=== PATIENT | female | born 1970 | race Caucasian/White ===

== ENCOUNTER 2018-11-03 12:38 | Inpatient (IN) ==
[2018-11-03] MEDS ORDERED: ADENOCARD INJ 6 MG ONE (13:29)
[2018-11-03] MEDS ORDERED: NS 1000 ML 1,000 ML ONE (13:35)
[2018-11-03] MEDS ORDERED: CARDIZEM INJ 50 MG VIAL IVP ONE ×4 (13:47→14:56)
[2018-11-03] MEDS ORDERED: CARDIZEM INJ 50 MG VIAL ONE ×3 (13:47→15:55)
[2018-11-03] MEDS ORDERED: NS 1000 ML 1,000 ML IV ONE ×3 (13:48→16:49)
--- NOTE | 2018-11-03 13:51 | DR.EXTPAIN ---
HPI - Time seen Time seen: 13:47 - PCP Primary Care Physician: JAKE GALEANO - Complaint/Symptoms Chief Complaint Doctor Comments: Patient is complaining of left lower abdominal and epigastric pain with nausea for the past 24 hours. States she thought she passed a kidney stone yesterday with lower abdominal pain and pain in her "ureter". she denies chest pain but is complaining of SOB, nausea vomiting but denies fever, chills. cold or cough. States she has not had a problem with rapid heart rate before. She smokes 1/2 pack cigarettes daily and drinks alcohol occasionally. Chief Complaint:: PATIENT STATED SHE THINKS SHE HAS A KIDNEY STONE CAUSE SHE HAS BEEN HURTING FOR 8 DAYS AND SHE STATED SHE HAD BEEN RETAINING FLUID. - Nurses notes reviewed Nurses Notes Review: Yes - Source History Provided: Patient - Mode of arrival Mode of Arrival: Ambulatory - Timing Onset of Chief Complaint: 10/27/18 - Context History of: None - Associated signs and symptoms Associated Signs and Symptoms: Pain, Shortness of Breath PMH - PMH Past Medical History: Yes Past Medical History: Diabetes, Hypertension Past Surgical History: Yes Surgical History: Hysterectomy - Family History History of Family Medical Conditions: No - Social History Does patient currently use any type of tobacco product: Yes Have you used tobacco products in the last 12 months: Yes Type of Tobacco Use: None How many years tobacco product used: 36 Does any household member use tobacco: Yes Alcohol Use: Occasionally Do you use any recreational Drugs:: No Lives With: Family Lives Where: Home - infectious screening In the last 2 months have you had wt loss of >10#?: NO Have you had fever, night sweats or hemotysis?: No Have you traveled outside the country in the last 6 months?: No Isolation: Standard ROS - Review of Systems Constitutional: No Symptoms Reported Eyes: No Symptoms Reported ENTM: No Symptoms Reported Respiratoy: No Symptoms Reported, Short of Breath Cardiovascular: No Symptoms Reported, Palpitations Gastrointestinal/Abdominal: No Symptoms Reported, Abdominal Pain, Nausea Genitourinary: No Symptoms Reported. negative: See HPI, Discharge, Dysuria, Frequency, Hematuria, Pain, Bleeding, Other Neurological: No Symptoms Reported. negative: See HPI, Anxiety, Depressed, Emotional Problems, Headache, Numbness, Paresthesia, Pre-existing Deficit, Seizure, Tingling, Tremors, Weakness, Dizziness, Problems Walking, Speech Problem, Other Musculoskeletal: No Symptoms Reported Integumentary: No Symptoms Reported Hematologic/Lymphatic: No Symptoms Reported. negative: See HPI, Anemia, Blood Clots, Easy Bleeding, Easy Bruising, Swollen Glands, Lymphadenopathy, Other Endocrine: No Symptoms Reported Psychiatric: No Symptoms Reported. negative: See HPI, Anxiety, Depression, Hallucinations, Excessive crying, Suicidal, Other PE - General Limitations: No Limitations General Appearance: Alert, In Distress (slight) - Head Head Exam: Normal Inspection, Atraumatic, Normocephalic - Eyes Eye exam: Normal Appearance, PERRL, EOMI. negative: Scleral Icterus, Conjunctival Injection, Nystagmus, Miosis, Mydrasis, Periorbital Swelling, Periorbital Tenderness, Other - ENT ENT Exam: Normal Exam, Normal Oropharynx, Normal External Ear Exam, Mucous Membranes Moist, TM's Normal Bilaterally - Neck Neck Exam: Normal Inspection, Full ROM, Trachea Midline. negative: Tenderness, Meningismus, Lymphadenopathy, Thyromegaly, Other - Chest Chest Inspection: Normal Inspection, Symmetric Chest Wall Rise - Respiratory Respiratory Exam: Normal Lung Sounds Bilat Respiratory Exam: Bilateral Clear to Auscultation - Cardiovascular Cardiovascular Exam: Regular Rate, Normal Rhythm, Tachycardia, Normal Heart Sounds - Abdominal Exam Abdominal Exam: Normal Inspection, Normal Bowel Sounds, Soft, Tenderness (left lower abdominal pain with suprapubic pain) Abdominal Tenderness: Suprapubic, Moderate - Extremities Extremities Exam: Normal Inspection, Full ROM, Normal Capillary Refill. negative: Tenderness, Edema, Joint Swelling, Calf Tenderness, Other - Upper Extremities Shoulder Exam: Normal Inspection, Full ROM Arm Exam: Normal Inspection, Full ROM. negative: Tenderness, Swelling, Abrasion, Laceration, Ecchymosis, Deformity, Crepitus, Erythema, Other Elbow Exam: Normal Inspection, Full ROM Forearm Exam: Normal Inspection, Full ROM. negative: Tenderness, Swelling, Abrasion, Laceration, Ecchymosis, Deformity, Crepitus, Erythema, Dislocation, Other Hand Exam: Normal Inspection, Full ROM Neuromotor Exam: Normal Exam Neurosensory Exam: Normal Exam Hand Tendon Exam: Flexor Digitorium Profundus (Location) (normal) Upper Ext. Vascular Exam: Capillary Refill (normal), Radial Pulse (normal) - Lower Extremities Hip/Pelvis Exam: Normal Inspection, Full ROM Upper Leg Exam: Normal Inspection, Full ROM Knee Exam: Normal Inspection, Full ROM Lower Leg Exam: Normal Inspection, Full ROM Ankle Exam: Normal Inspection, Full ROM Foot/Toe Exam: Normal Inspection, Full ROM Neurovascular/Tendon Exam: Normal Capillary Refill, Normal 2-point discrimination. negative: Pulse Deficit, Motor Deficit, Sensory Deficit, Tendon Deficit, Extremity Cold to Touch, Pallor, Normal Fine/Light Touch, Foot Drop, Peroneal Nerve Deficit, Other Gait Exam: Observed and Normal - Back Back Exam: Normal Inspection, Full ROM - Neurological Neurological Exam: Alert, Oriented X3, CN II-XII Intact, Reflexes Normal. negative: Normal Gait (gait not tested) - Psychiatric Psychiatric Exam: Normal Affect, Normal Mood - Skin Skin Exam: Warm, Dry, Intact, Normal Color Type of Lesion: negative: Rash, Abscess, Laceration, Foreign Body, Bite/Sting, Abrasion, Other Distribution: negative: Generalized, Involves Palms/Soles, Head, Face, Neck, Thorax, Chest, Back, Abdomen, Genitals, LUE, LLE, RUE, RLE, Other Description: negative: Size, Tenderness, Erythematous, Swelling, Macular, Papular, Vesicular, Blisters, Cofluent, Bullous, Petechial, Purpuric, Urticaria l, Crusting, Discharge, Fluctuant, Indurated, Other - Vital Signs Vitals: Temperature 98.9 F Pulse Rate [Apical] 103 Pulse Rate 159 Respiratory Rate 15 Blood Pressure [Right Arm] 122/58 Blood Pressure 110/76 O2 Sat by Pulse Oximetry 97 Course - Reevaluation 1st: Improved - Consultation Called: 17:55 Call Returned: 17:55 (Dr. Cisneros to admit) - Education/Counseling Education/Counseling: Family Educated On: Treatment, Diagnosis, Needs for Follow Up ROR - Labs Reviewed Laboratory Results Reviewed?: Yes (All labs and x-ray results reviewed and discussed with patient) Result Diagrams: 11/03/18 13:36 11/03/18 13:36 - XRAY XRAY Interpreted by: Radiologist (CT abdomen and pelvis: Mildto moderate volum ascites and anasarca wtih small right pleural effusion. Cardiomegaly. Colonic diverticulosis) - EKG Rate: 159 Rew: Normal Rhythm: ST Block: None Hypertrophy: None ST: Inf, Ischemia - Labs Reviewed Laboratory: WBC 15.1 X10^3/uL (3.6-10.0) H 11/03/18 13:36 RBC 4.03 X10^6/uL (3.5-5.4) 11/03/18 13:36 Hgb 11.4 g/dL (12.0-16.0) L 11/03/18 13:36 Hct 34.9 % (36.0-47.0) L 11/03/18 13:36 MCV 86.7 fL (80.0-100.0) 11/03/18 13:36 MCH 28.4 pg (27.0-34.0) 11/03/18 13:36 MCHC 32.7 g/dL (33.0-35.0) L 11/03/18 13:36 RDW 15.5 % (11.6-16.5) 11/03/18 13:36 Plt Count 344 X10^3/uL (150.0-450.0) 11/03/18 13:36 MPV 8.2 fL (7.4-11.0) 11/03/18 13:36 Neut % (Auto) 79.4 % (42.0-75.0) H 11/03/18 13:36 Lymph % (Auto) 14.9 % (21.0-51.0) L 11/03/18 13:36 [place] % (Auto) 4.3 % (0.0-13.0) 11/03/18 13:36 Eos % (Auto) 0.9 % (0.9-2.9) 11/03/18 13:36 Baso % (Auto) 0.5 % (0.2-1.0) 11/03/18 13:36 Neut # (Auto) 12.0 x10^3/uL (2.2-4.8) H 11/03/18 13:36 Lymph # (Auto) 2.2 X10^3/uL (1.3-2.9) 11/03/18 13:36 [place] # (Auto) 0.6 x10^3/uL (0.3-0.8) 11/03/18 13:36 Eos # (Auto) 0.1 x10^3/uL (0.0-0.2) 11/03/18 13:36 Baso # (Auto) 0.1 X10^3/uL (0.0-0.1) 11/03/18 13:36 Absolute Nucleated RBC 0.0 /100WBC 11/03/18 13:36 INR Target Range - 11/03/18 13:36 INR 1.14 (0.8-1.3) 11/03/18 13:36 APTT 30.7 SECONDS (22.9-36.5) 11/03/18 13:36 PTT Comment - 11/03/18 13:36 D-Dimer 271 ng/mL (0-400) 11/03/18 13:36 Sodium 136 mmol/L (136-145) 11/03/18 13:36 Corrected Sodium 138 mmol/L (136-145) 11/03/18 13:36 Potassium 3.4 mmol/L (3.5-5.1) L 11/03/18 13:36 Chloride 102 mmol/L (98-107) 11/03/18 13:36 Carbon Dioxide 26.0 mmol/L (21-32) 11/03/18 13:36 BUN 20 mg/dL (7-18) H 11/03/18 13:36 Creatinine 0.77 mg/dL (0.55-1.02) 11/03/18 13:36 Est GFR (MDRD) Af Amer > 60 (>60) 11/03/18 13:36 Est GFR (MDRD) Non-Af > 60 (>60) 11/03/18 13:36 Glucose 193 mg/dL (65-99) H 11/03/18 13:36 Calcium 9.0 mg/dL (8.5-10.1) 11/03/18 13:36 Corrected Calcium 9.6 mg/dL (8.5-10.1) 11/03/18 13:36 Magnesium 2.3 mg/dL (1.7-2.9) 11/03/18 13:36 Total Bilirubin 0.60 mg/dL (0.2-1.0) 11/03/18 13:36 AST 20 Units/L (15-37) 11/03/18 13:36 ALT 32 Units/L (12-78) 11/03/18 13:36 Alkaline Phosphatase 91 Units/L (46-116) 11/03/18 13:36 Creatine Kinase 127 Units/L (26-192) 11/03/18 13:36 CK-MB (CK-2) 2.9 ng/mL (0-4.0) 11/03/18 13:36 CK/CKMB % Calc 2.3 % (<4) 11/03/18 13:36 Troponin I 0.06 ng/mL (0-1.5) 11/03/18 13:36 Total Protein 6.4 g/dL (6.4-8.2) 11/03/18 13:36 Albumin 3.3 g/dL (3.4-5.0) L 11/03/18 13:36 Globulin 3.1 g/dL (2.5-4.5) 11/03/18 13:36 Albumin/Globulin Ratio 1.1 Ratio (1.1-2.1) 11/03/18 13:36 Amylase 26 Units/L (25-115) 11/03/18 13:36 Lipase 124 Units/L (73-393) 11/03/18 13:36 Free T4 1.40 ng/dL (0.76-1.46) 11/03/18 13:36 TSH 3rd Generation 1.165 uIU/mL (0.358-3.74) 11/03/18 13:36 Specimen Type Clean catch urine 11/03/18 13:42 Urine Color Yellow (YELLOW) 11/03/18 13:42 Urine Appearance Slightly hazy (CLEAR) 11/03/18 13:42 Urine pH 5.0 (5.0 - 8.0) 11/03/18 13:42 Ur Specific [place] 1.030 (1.000-1.030) 11/03/18 13:42 Urine Protein 2+ (NEGATIVE) 11/03/18 13:42 Urine Glucose (UA) Negative (NEGATIVE) 11/03/18 13:42 Urine Ketones 1+ (NEGATIVE) 11/03/18 13:42 Urine Occult Blood 1+ (NEGATIVE) 11/03/18 13:42 Urine Nitrite Negative (NEGATIVE) 11/03/18 13:42 Urine Bilirubin Negative (NEGATIVE) 11/03/18 13:42 Urine Urobilinogen 1+ (NORMAL) 11/03/18 13:42 Ur Leukocyte Esterase 1+ (NEGATIVE) 11/03/18 13:42 Urine RBC 0-2 /HPF (NONE SEEN) 11/03/18 13:42 Urine WBC 0-2 /HPF (NONE SEEN) 11/03/18 13:42 Ur Squamous Epith Cells Moderate /HPF (NEGATIVE) 11/03/18 13:42 Amorphous Sediment 1+ /HPF (NEGATIVE) 11/03/18 13:42 Urine Bacteria Negative /HPF (NEGATIVE) 11/03/18 13:42 Ur Culture Indicated? No/not indicated 11/03/18 13:42 Urine Opiates Screen Negative (NEG=<300) 11/03/18 13:42 Urine Methadone Screen Negative (NEG=<300) 11/03/18 13:42 Ur Barbiturates Screen Negative (NEG=<200) 11/03/18 13:42 Ur Phencyclidine Scrn Negative (NEG=<25) 11/03/18 13:42 Ur Amphetamines Screen Negative (NEG=<1000) 11/03/18 13:42 U Benzodiazepines Scrn Negative (NEG=<200) 11/03/18 13:42 Urine Cocaine Screen Negative (NEG=<300) 11/03/18 13:42 U Marijuana (THC) Screen Negative (NEG=<50) 11/03/18 13:42 - Diagnosis Discharge Problem: Atrial flutter with rapid ventricular response, Pleural effusion on right, Cardiac arrhythmia, Diverticulosis of colon, Hyperglycemia, Hypokalemia, Ascites Abdominal pain Qualifiers: Abdominal location: lower abdomen, unspecified Qualified Code(s): R10.30 - Lower abdominal pain, unspecified - Discharge Plan Disposition: ADMITTED INPATIENT Condition: Stable - Follow ups/Referrals Follow ups/Referrals: JAKE GALEANO [Primary Care Provider] - 3 days - Instructions
[2018-11-03 13:52] LABS: BILIRUBIN,URINE NEGATIVE (NEGATIVE); BLOOD/HEMOGLOBIN,URINE 1+ (NEGATIVE); GLUCOSE, URINE NEGATIVE (NEGATIVE); KETONES,URINE 1+ (NEGATIVE); LEUKOCYTE ESTERASE ,URINE 1+ (NEGATIVE); NITRITES,URINE NEGATIVE (NEGATIVE); PROTEIN,URINE 2+ (NEGATIVE); UROBILINOGEN,URINE 1+ (NORMAL)
[2018-11-03 13:56] LABS: APPEARANCE,URINE SLIGHTLY HAZY (CLEAR); COLOR,URINE YELLOW (YELLOW)
[2018-11-03] MEDS ORDERED: LANOXIN INJ ONE ×2 (13:56→23:10)
[2018-11-03] MEDS ORDERED: LANOXIN INJ IVP STA (13:56)
[2018-11-03 13:57] LABS: BASOPHILS # (AUTO) 0.1 X10^3/uL (0.0-0.1); BASOPHILS % (AUTO) 0.5 % (0.2-1.0); EOSINOPHILS # (AUTO) 0.1 x10^3/uL (0.0-0.2); EOSINOPHILS % (AUTO) 0.9 % (0.9-2.9); HEMATOCRIT 34.9 % (36.0-47.0); HEMOGLOBIN 11.4 g/dL (12.0-16.0); LYMPHOCYTES # (AUTO) 2.2 X10^3/uL (1.3-2.9); LYMPHOCYTES % (AUTO) 14.9 % (21.0-51.0); MEAN CORPUSCULAR HEMOGLOBIN 28.4 pg (27.0-34.0); MEAN CORPUSCULAR HGB CONC 32.7 g/dL (33.0-35.0); MEAN CORPUSCULAR VOLUME 86.7 fL (80.0-100.0); MEAN PLATELET VOLUME 8.2 fL (7.4-11.0); MONOCYTES # (AUTO) 0.6 x10^3/uL (0.3-0.8); MONOCYTES % (AUTO) 4.3 % (0.0-13.0); NEUTROPHILS % (AUTO) 79.4 % (42.0-75.0); PLATELET COUNT 344 X10^3/uL (150.0-450.0); RED BLOOD COUNT 4.03 X10^6/uL (3.5-5.4); RED CELL DISTRIBUTION WIDTH 15.5 % (11.6-16.5); WHITE BLOOD COUNT 15.1 X10^3/uL (3.6-10.0)
[2018-11-03] MEDS: NS 1000 ML 1,000 ML IV SCH (14:00)
[2018-11-03 14:10] LABS: RBC,URINE 0-2 /HPF (NONE SEEN)
[2018-11-03 14:11] LABS: AMORPHOUS SEDIMENT,UR 1+ /HPF (NEGATIVE); BACTERIA,URINE NEGATIVE /HPF (NEGATIVE); SQUAMOUS EPITHELIAL CELL,UR MODERATE /HPF (NEGATIVE)
[2018-11-03 14:16] LABS: BLOOD UREA NITROGEN 20 mg/dL (7-18); CHLORIDE 102 mmol/L (98-107); COR NA(FOR HYPERGLY) 138 mmol/L (136-145); CREATININE 0.77 mg/dL (0.55-1.02); SODIUM 136 mmol/L (136-145); TROPONIN I 0.06 ng/mL (0-1.5); eGFR NON BLACK RACES > 60 (>60)
[2018-11-03 14:17] LABS: FREE T4 (FREE THYROXINE) 1.4 ng/dL (0.76-1.46); TSH (3RD GENERATION) 1.165 uIU/mL (0.358-3.74)
[2018-11-03 14:19] LABS: ALANINE AMINOTRANSFERASE 32 Units/L (12-78); ALBUMIN 3.3 g/dL (3.4-5.0); ALKALINE PHOSPHATASE 91 Units/L (46-116); AMYLASE 26 Units/L (25-115); ASPARTATE AMINO TRANSFERASE 20 Units/L (15-37); CKMB % 2.3 % (<4); COR CA(FOR HYPOALB) 9.6 mg/dL (8.5-10.1); CREATINE KINASE 127 Units/L (26-192); CREATINE KINASE MB 2.9 ng/mL (0-4.0); LIPASE 124 Units/L (73-393); MAGNESIUM 2.3 mg/dL (1.7-2.9); TOTAL PROTEIN 6.4 g/dL (6.4-8.2)
[2018-11-03] MEDS ORDERED: LOPRESSOR INJ 5 MG AMP IVP ONE (15:25)
[2018-11-03] MEDS ORDERED: LOPRESSOR INJ 5 MG AMP ONE (15:27)
--- NOTE | 2018-11-03 15:35 | CT ---
HISTORY: Abdominal pain, possible kidney stone Study: CT abdomen and pelvis without contrast Comparison: None Technique: Multiple axial images of the abdomen and pelvis were obtained without IV contrast. Dose reduction techniques including Automated Exposure Control (AEC) and adjustment of mA and kV were utilized. Findings: Please note evaluation is limited without use of IV contrast. There is a partially visualized small left pleural effusion. Mild cardiomegaly is present. There is mild to moderate volume ascites throughout the abdomen pelvis limiting evaluation. The unenhanced spleen, liver, pancreas, and adrenal glands are unremarkable. The gallbladder is normal. No renal calculi or obstructive uropathy identified. No free intraperitoneal air. No evidence of intestinal obstruction or inflammation. Appendix is normal. There are colonic diverticula present distally without acute inflammation. There is mild to moderate anasarca. No acute osseous abnormality identified. Limited evaluation of vascular structures due to lack of contrast. No pathologically enlarged lymph nodes are identified. Normal urinary bladder. Uterus is removed. IMPRESSION: 1. Mild to moderate volume ascites and anasarca with small right pleural effusion suggesting volume overload/third-spacing of uncertain etiology. 2. Cardiomegaly. 3. Colonic diverticulosis. Reported By:
--- NOTE | 2018-11-03 15:50 | RAD ---
STUDY: CHEST, ONE VIEW History: Kidney stone. Comparison: None. Findings: The trachea is midline. The lungs are clear of consolidation, significant infiltrate, effusion, or pneumothorax. The cardiac silhouette, mediastinum and osseous structures are unremarkable. Surgical clips project over the left axilla and left costophrenic angle. IMPRESSION: 1. No evidence of acute cardiopulmonary abnormality. Reported By:
[2018-11-03] MEDS ORDERED: NS 100 ML IV 100 ML IV ONE (16:01)
[2018-11-03] MEDS: CARDIZEM INJ 125 MG VIAL 125 MG in NS 100 ML IV 100 ML IV PRN (17:16)
[2018-11-03] MEDS ORDERED: K-LYTE EFFERVESCENT PO STA (18:02)
[2018-11-03] MEDS ORDERED: K-LYTE EFFERVESCENT ONE (18:14)
[2018-11-03 20:14] VITALS: BMI 34.7
[2018-11-03 20:17] LABS: CKMB % 2.3 % (<4); CREATINE KINASE MB 2.3 ng/mL (0-4.0); TROPONIN I 0.07 ng/mL (0-1.5)
[2018-11-03] MEDS: LOVENOX INJ 80 MG SYR SC SCH (20:46)
[2018-11-03] MEDS ORDERED: TYLENOL 325 MG TAB PO PRN (20:53)
[2018-11-03] MEDS ORDERED: LOVENOX INJ 40 MG SYR SC SCH (21:00)
[2018-11-03] MEDS ORDERED: LANOXIN INJ IVP ONE (23:06)
[2018-11-04 02:21] LABS: CKMB % 2.2 % (<4); CREATINE KINASE MB 2.1 ng/mL (0-4.0); TROPONIN I 0.08 ng/mL (0-1.5)
[2018-11-04 05:55] LABS: BASOPHILS # (AUTO) 0.1 X10^3/uL (0.0-0.1); BASOPHILS % (AUTO) 0.9 % (0.2-1.0); EOSINOPHILS # (AUTO) 0.2 x10^3/uL (0.0-0.2); EOSINOPHILS % (AUTO) 1.6 % (0.9-2.9); HEMATOCRIT 33.7 % (36.0-47.0); LYMPHOCYTES # (AUTO) 3.7 X10^3/uL (1.3-2.9); LYMPHOCYTES % (AUTO) 27.8 % (21.0-51.0); MEAN CORPUSCULAR HEMOGLOBIN 28.3 pg (27.0-34.0); MEAN CORPUSCULAR HGB CONC 32.6 g/dL (33.0-35.0); MEAN CORPUSCULAR VOLUME 86.9 fL (80.0-100.0); MEAN PLATELET VOLUME 8.3 fL (7.4-11.0); MONOCYTES # (AUTO) 0.8 x10^3/uL (0.3-0.8); MONOCYTES % (AUTO) 5.7 % (0.0-13.0); NEUTROPHILS # (AUTO) 8.5 x10^3/uL (2.2-4.8); PLATELET COUNT 305 X10^3/uL (150.0-450.0); RED BLOOD COUNT 3.87 X10^6/uL (3.5-5.4); RED CELL DISTRIBUTION WIDTH 15.2 % (11.6-16.5); WHITE BLOOD COUNT 13.3 X10^3/uL (3.6-10.0)
[2018-11-04 06:09] LABS: ALANINE AMINOTRANSFERASE 30 Units/L (12-78); ALBUMIN 2.9 g/dL (3.4-5.0); ALKALINE PHOSPHATASE 81 Units/L (46-116); ASPARTATE AMINO TRANSFERASE 19 Units/L (15-37); BLOOD UREA NITROGEN 18 mg/dL (7-18); CALCIUM 8.2 mg/dL (8.5-10.1); CHLORIDE 105 mmol/L (98-107); CHOL/HDL RATIO 4.4 (0.0-5.0); CHOLESTEROL 135 mg/dL (0-200); COR CA(FOR HYPOALB) 9.1 mg/dL (8.5-10.1); CREATININE 0.73 mg/dL (0.55-1.02); DIGOXIN 1.31 ng/mL (0.9-2); HDL CHOLESTEROL 31 mg/dL (40-60); SODIUM 138 mmol/L (136-145); TOTAL PROTEIN 5.8 g/dL (6.4-8.2); TRIGLYCERIDES 66 mg/dL (0-150); eGFR NON BLACK RACES > 60 (>60)
[2018-11-04] MEDS: NS 1000 ML 1,000 ML IV SCH ×3 (06:18→23:58)
[2018-11-04] MEDS: CARDIZEM INJ 125 MG VIAL 125 MG in NS 100 ML IV 100 ML IV PRN (06:30)
[2018-11-04] MEDS ORDERED: K-RIDER 10 MEQ/NS 100 ML 10 MEQ/100 ML BAG IV PRN (06:35)
[2018-11-04] MEDS ORDERED: POTASSIUM CHLORIDE LIQ 20 MEQ UDC PO PRN (06:35)
[2018-11-04] MEDS ORDERED: K-DUR TAB 20 MEQ PO PRN (06:35)
[2018-11-04] MEDS ORDERED: KLOR-CON PO PRN (06:35)
[2018-11-04] MEDS ORDERED: POTASSIUM CHL 40 MEQ/NS 0.45% 500 ML IV PRN (06:35)
[2018-11-04] MEDS ORDERED: MICRO K EXTEN CAP 10 MEQ PO PRN (06:35)
[2018-11-04] MEDS ORDERED: POTASSIUM CHL 60 MEQ/NS 0.45% 500 ML IV PRN (06:35)
[2018-11-04 08:12] LABS: CKMB % 3.5 % (<4); CREATINE KINASE MB 2.5 ng/mL (0-4.0); TROPONIN I 0.07 ng/mL (0-1.5)
[2018-11-04] MEDS: LOVENOX INJ 80 MG SYR SC SCH ×2 (09:31→20:30)
[2018-11-04] MEDS: CARDIZEM CD 180 MG PO SCH (11:16)
--- NOTE | 2018-11-04 21:48 | DR.H&P ---
H&P - History & Physical for Day of: H&P Date: 11/03/18 - Chief Complaint Chief Complaint: ABDOMINAL PAIN, NAUSEA, SOB, SWELLING - History of Present Illness History of Present Illness: IS A 47 YEAR OLD PATIENT OF JAKE NIEVES. SHE PRESENTED TO THE ER WITH COMPLAINTS OF LEFT LOWER QUDRANT ABDOMINAL PAIN AND EPIGASTRIC PAIN WITH NAUSEA FOR THE PAST 24 HOURS PRIOR TO ARRIVAL. SHE DENIED C/P, FEVER, OR CHILLS. SHE DOES REPORT SHORTNESS OF BREATH AND GENERALIZED SWELLING. PAST MEDICAL HISTORY INCLUDES DIABETES AND HYPERTENSION. ON ARRIVAL TO THE ER, VITALS WERE 98.9-160-16-98%-98/56. LABS WERE OBTAINED. ABNORMAL LAB VALUES INCLUDE THE FOLLOWING: WBC 15.1, HGB 11.4, HCT 34.9, POTASSIUM 3.4, BUN 20, GLUCOSE 193, ALBUMIN 3.3. CARDIAC ENZYMES WITHIN NORMAL LIMITS. URINALYSIS IS UNREMARKABLE. CHEST XRAY OBTAINED AND REVEALED NO ACUTE CARDIOPULMONARY DISEASE. EKG REVEALED SINUS TACHYCARDIA WITH HR 159. AN ABDOMEN/PELVIS CT WAS OBTAINED AND REVEALED: Mild to moderate volume ascites and anasarca with small right pleural effusion suggesting volume overload/third- spacing of uncertain etiology. Cardiomegaly. Colonic diverticulosis. SHE WAS GIVEN A NORMAL SALINE BOLUS X 2 LITERS, LOPRESSOR IV, AND LANOXIN 250MCG IV X 1 IN THE ER. SHE WAS THEN STARTED ON A CARDIZEM DRIP AFTER HEARTRATE REMAINED ELEVATED. SHE WAS ADMITTED TO THE INTENSIVE CARE UNIT FOR FURTHER EVALUATION AND TREATMENT OF A-FIB WITH RVR, ABDOMINAL PAIN, AND ASCITES. SHE WAS ALSO STARTED ON NORMAL SALINE AT 75ML/HR. WE PLAN TO FOLLOW UP WITH AM LABS AND CONTINUE TO MONITOR. - Past Medical History Past Medical History: Diabetes, Hypertension - Past Surgical History Surgical History: Hysterectomy, Ortho Surgery, Tonsillectomy - Family History Family Medical History: Diabetes Mellitus, Cancer, Heart Failure, Hypertension - Social History Does patient currently use any type of tobacco product: Yes Have you used tobacco products in the last 12 months: Yes Type of Tobacco Use: Cigarettes How many years tobacco product used: 36 Does any household member use tobacco: Yes Alcohol Use: Occasionally Drug Use: None - Medications Home Medications: No Known Drug Allergies Allergy (Verified 11/03/18 13:01) CONTINUE taking the following medications famotidine 20 mg PO DAILY 11/03/18 [History] glyburide 5 mg PO BID 11/03/18 [History] letrozole 2.5 mg PO DAILY 11/03/18 [History] lisinopril-hydrochlorothiazide 1 tab PO DAILY 11/03/18 [History] loratadine-pseudoephedrine [Claritin-D 24 Hour] 1 tab PO DAILY 11/03/18 [History] - Review of Systems Eyes: No Symptoms Reported ENT: No Symptoms Reported Respiratory: Shortness of Breath Cardiovascular: See HPI, Edema (GENERALIZED EDEMA ) Gastrointestinal: Nausea, Abdominal Pain Genitourinary: No Symptoms Reported Musculoskeletal: No Symptoms Reported Skin: No Symptoms Reported Neurological: No Symptoms Reported - Physical Exam Vital Signs: Temperature 98.1 F Pulse Rate [Apical] 148 Pulse Rate 144 Respiratory Rate 32 Blood Pressure [Left Arm] 120/65 Blood Pressure [Right Arm] 127/58 Blood Pressure 178/75 O2 Sat by Pulse Oximetry 96 Oriented: Normal Eyes: Normal Ear: Normal Nose: Normal Throat: Normal Respiratory: Diminished Throughout Cardiovascular: Tachycardia, Edema. negative: S3, S4, Murmur : Normal Auscultation: Bowel Sounds: Normal Palpation: Normal Tenderness: LLQ, Epigastric, Moderate. negative: Rebound, Guarding, Rigidity Skin: Normal Musculoskeletal: Normal Psychiatric: Normal Mood Description: Calm Affect: Normal Speech Pattern: Clear - Assessment/Plan (1) Atrial fibrillation with RVR Status: Acute Plan: CARDIZEM DRIP, HAIR DESIGNER, SUPPLEMENTAL OXYGEN, CONTINUE TO MONITOR (2) Anasarca Status: Acute (3) Abdominal pain Qualifiers: Abdominal location: lower abdomen, unspecified Qualified Code(s): R10.30 - Lower abdominal pain, unspecified Status: Acute (4) Ascites Qualifiers: Ascites type: other type Qualified Code(s): R18.8 - Other ascites Status: Acute - Allergies Allergies/Adverse Reactions: Allergies Allergy/AdvReac Type Severity Reaction Status Date / Time No Known Drug Allergies Allergy Verified 11/03/18 13:01
[2018-11-04] MEDS ORDERED: LANOXIN INJ IVP ONE (22:51)
[2018-11-04] MEDS ORDERED: VALIUM ONE (23:53)
[2018-11-04] MEDS: VALIUM PO PRN (23:58)
[2018-11-05 06:09] LABS: BASOPHILS # (AUTO) 0.1 X10^3/uL (0.0-0.1); EOSINOPHILS # (AUTO) 0.2 x10^3/uL (0.0-0.2); EOSINOPHILS % (AUTO) 1.6 % (0.9-2.9); LYMPHOCYTES # (AUTO) 3.9 X10^3/uL (1.3-2.9); LYMPHOCYTES % (AUTO) 33.3 % (21.0-51.0); MEAN CORPUSCULAR HEMOGLOBIN 28.4 pg (27.0-34.0); MEAN CORPUSCULAR HGB CONC 32.4 g/dL (33.0-35.0); MEAN CORPUSCULAR VOLUME 87.7 fL (80.0-100.0); MEAN PLATELET VOLUME 8.1 fL (7.4-11.0); MONOCYTES # (AUTO) 0.7 x10^3/uL (0.3-0.8); MONOCYTES % (AUTO) 5.8 % (0.0-13.0); NEUTROPHILS # (AUTO) 6.8 x10^3/uL (2.2-4.8); NEUTROPHILS % (AUTO) 58.3 % (42.0-75.0); PLATELET COUNT 293 X10^3/uL (150.0-450.0); RED BLOOD COUNT 3.88 X10^6/uL (3.5-5.4); RED CELL DISTRIBUTION WIDTH 15.3 % (11.6-16.5); WHITE BLOOD COUNT 11.7 X10^3/uL (3.6-10.0)
[2018-11-05 06:35] LABS: ALANINE AMINOTRANSFERASE 27 Units/L (12-78); ALBUMIN 2.8 g/dL (3.4-5.0); ALKALINE PHOSPHATASE 76 Units/L (46-116); ASPARTATE AMINO TRANSFERASE 19 Units/L (15-37); BLOOD UREA NITROGEN 15 mg/dL (7-18); CALCIUM 8.1 mg/dL (8.5-10.1); CARBON DIOXIDE 25.1 mmol/L (21-32); CHLORIDE 106 mmol/L (98-107); COR CA(FOR HYPOALB) 9.1 mg/dL (8.5-10.1); CREATININE 0.72 mg/dL (0.55-1.02); SODIUM 137 mmol/L (136-145); TOTAL PROTEIN 5.9 g/dL (6.4-8.2); eGFR NON BLACK RACES > 60 (>60)
[2018-11-05] MEDS: CARDIZEM CD 180 MG PO SCH (09:00)
--- NOTE | 2018-11-05 10:09 | US ---
Exam: Hepatic ultrasound History: 47-year-old female with abdominal distension. Ascites noted on recent CT Comparison: CT of the abdomen/pelvis from 11/03/2018. Findings: Mild hepatomegaly is seen. Portal vein is patent with normal hepatopetal flow. Evaluation of the gallbladder demonstrates no evidence of cholelithiasis. Gallbladder wall thickening (5 mm) is present. This may be on the basis of a hypoproteinemic state. No localized tenderness. Common bile duct measures 2 mm in diameter. Right kidney measures 10.4 x 5.3 x 5.1 cm in size. No hydronephrosis, echogenic calculi, or renal mass is seen on the right. Ascites is noted in all 4 quadrants. Impression: 1. Mild hepatomegaly. 2. Thickened gallbladder wall (5 mm) may be on the basis of a hypoproteinemic state. No cholelithiasis. 3. Ascites is noted in all 4 quadrants Reported By:
[2018-11-05] MEDS ORDERED: LASIX IVP ONE (10:10)
[2018-11-05] MEDS: LOVENOX INJ 80 MG SYR SC SCH ×2 (10:10→20:45)
--- NOTE | 2018-11-05 11:38 | PCM.PROG ---
Progress Note - Progress Note for Day of Date of Exam: 11/04/18 - Subjective Subjective: WAS ADMITTED FOR ATRIAL FIBRILLATION, ANASARCA, ASCITES, AND ABDOMINAL PAIN. THERE WAS EVIDENCE OF SMALL RIGHT PLEURAL EFFUSION AND COLONIC DIVERTICULOSIS ON ABDOMEN CT. TODAY, SHE IS ALERT AND ORIENTED, LYING IN BED ON MORNING ROUNDS. SHE CONTINUES WITH COMPLAINTS OF SHORTNESS OF BREATH AND GENERALIZED SWELLING. SHE ALSO CONTINUES WITH DIFFUSE ABDOMINAL PAIN. SHE REMAINS ON A CARDIZEM DRIP TODAY. DIETITIAN ASSISTANT REVEALS ATRIAL FIBRILLATION WITH HR IN THE 90s. HER VITALS THIS MORNING ARE 98.5-90-28-95%-110/50. LABS WERE OBTAINED. ABNORMAL LAB VALUES INCLUDE THE FOLLOWING: WBC 13.3, HGB 11.0, HCT 33.7, POTASSIUM 3.2, CALCIUM 8.2, TOTAL PROTEIN 5.8, ALBUMIN 2.9, HDL 31. CARDIA C ENZYMES WITHIN NORMAL LIMITS. THIS MORNINGS EKG REVEALED: ATRIAL FLUTTER WITH HR 111. TODAY, WE WILL D/C THE CARDIZEM DRIP AND START CARDIZEM CD 180MG PO DAILY. WE WILL OBTAIN AN ECHO, LIVER US, AND AN ABD/PELVIS CT WITH CONTRAST IN THE MORNING. A HEPATITIS PANEL WILL BE DRAWN TODAY. OTHERWISE, WE WILL CONTINUE WITH CURRENT PLAN OF CARE. WE WILL FOLLOW UP WITH AM LABS AND CONTINUE TO MONITOR. - Past Medical Family Social History Past Med/Fam/Surg Hx: No changes since H&P Allergies: Allergies No Known Drug Allergies Allergy (Verified 11/03/18 13:01) - Review of Systems ROS: No change since H&P - Vital Signs and I&O's Vital Signs: Temperature 97.9 F Pulse Rate [Apical] 148 Pulse Rate 141 Respiratory Rate 29 Blood Pressure [Left Arm] 120/65 Blood Pressure [Right Arm] 127/58 Blood Pressure 177/87 O2 Sat by Pulse Oximetry 96 Intake and Output: Intake & Output 11/02/18 11/03/18 11/04/18 11/05/18 11:59 11:59 11:59 11:59 Intake Total 2207 / 2207 3155 / 3155 Output Total 200 / 200 600 / 600 Balance 2006 2555 / 2555 - Physical Exam Oriented: Normal Eyes: Normal Ear: Normal Nose: Normal Throat: Normal Respiratory: Diminished Cardiovascular: Tachycardia, Edema. negative: S3, S4, Murmur : Normal Auscultation: Bowel Sounds: Normal Palpation: Normal Tenderness: LLQ, Epigastric, Moderate. negative: Rebound, Guarding, Rigidity Skin: Normal Musculoskeletal: Normal Psychiatric: Normal Mood Description: Calm Affect: Normal Speech Pattern: Clear, Appropriate - Laboratory and Diagnostics Result Diagrams: 11/05/18 05:45 11/05/18 05:45 Labs: Laboratory WBC 11.7 X10^3/uL (3.6-10.0) H 11/05/18 05:45 RBC 3.88 X10^6/uL (3.5-5.4) 11/05/18 05:45 Hgb 11.0 g/dL (12.0-16.0) L 11/05/18 05:45 Hct 34.0 % (36.0-47.0) L 11/05/18 05:45 MCV 87.7 fL (80.0-100.0) 11/05/18 05:45 MCH 28.4 pg (27.0-34.0) 11/05/18 05:45 MCHC 32.4 g/dL (33.0-35.0) L 11/05/18 05:45 RDW 15.3 % (11.6-16.5) 11/05/18 05:45 Plt Count 293 X10^3/uL (150.0-450.0) 11/05/18 05:45 MPV 8.1 fL (7.4-11.0) 11/05/18 05:45 Neut % (Auto) 58.3 % (42.0-75.0) 11/05/18 05:45 Lymph % (Auto) 33.3 % (21.0-51.0) 11/05/18 05:45 [place] % (Auto) 5.8 % (0.0-13.0) 11/05/18 05:45 Eos % (Auto) 1.6 % (0.9-2.9) 11/05/18 05:45 Baso % (Auto) 1.0 % (0.2-1.0) 11/05/18 05:45 Neut # (Auto) 6.8 x10^3/uL (2.2-4.8) H 11/05/18 05:45 Lymph # (Auto) 3.9 X10^3/uL (1.3-2.9) H 11/05/18 05:45 [place] # (Auto) 0.7 x10^3/uL (0.3-0.8) 11/05/18 05:45 Eos # (Auto) 0.2 x10^3/uL (0.0-0.2) 11/05/18 05:45 Baso # (Auto) 0.1 X10^3/uL (0.0-0.1) 11/05/18 05:45 Absolute Nucleated RBC 0.0 /100WBC 11/05/18 05:45 INR Target Range - 11/03/18 13:36 INR 1.14 (0.8-1.3) 11/03/18 13:36 APTT 30.7 SECONDS (22.9-36.5) 11/03/18 13:36 PTT Comment - 11/03/18 13:36 D-Dimer 271 ng/mL (0-400) 11/03/18 13:36 Sodium 137 mmol/L (136-145) 11/05/18 05:45 Corrected Sodium TNP 11/05/18 05:45 Potassium 3.8 mmol/L (3.5-5.1) 11/05/18 05:45 Chloride 106 mmol/L (98-107) 11/05/18 05:45 Carbon Dioxide 25.1 mmol/L (21-32) 11/05/18 05:45 BUN 15 mg/dL (7-18) 11/05/18 05:45 Creatinine 0.72 mg/dL (0.55-1.02) 11/05/18 05:45 Est GFR (MDRD) Af Amer > 60 (>60) 11/05/18 05:45 Est GFR (MDRD) Non-Af > 60 (>60) 11/05/18 05:45 Glucose 93 mg/dL (65-99) 11/05/18 05:45 POC Glucose (mg/dL) 129 mg/dL (65-99) H 11/05/18 11:30 Calcium 8.1 mg/dL (8.5-10.1) L 11/05/18 05:45 Corrected Calcium 9.1 mg/dL (8.5-10.1) 11/05/18 05:45 Magnesium 2.3 mg/dL (1.7-2.9) 11/03/18 13:36 Total Bilirubin 0.40 mg/dL (0.2-1.0) 11/05/18 05:45 AST 19 Units/L (15-37) 11/05/18 05:45 ALT 27 Units/L (12-78) 11/05/18 05:45 Alkaline Phosphatase 76 Units/L (46-116) 11/05/18 05:45 Ammonia 18 umol/L (11-32) 11/04/18 10:45 Creatine Kinase 71 Units/L (26-192) 11/04/18 07:40 CK-MB (CK-2) 2.5 ng/mL (0-4.0) 11/04/18 07:40 CK/CKMB % Calc 3.5 % (<4) 11/04/18 07:40 Troponin I 0.07 ng/mL (0-1.5) 11/04/18 07:40 Total Protein 5.9 g/dL (6.4-8.2) L 11/05/18 05:45 Albumin 2.8 g/dL (3.4-5.0) L 11/05/18 05:45 Globulin 3.1 g/dL (2.5-4.5) 11/05/18 05:45 Albumin/Globulin Ratio 0.9 Ratio (1.1-2.1) L 11/05/18 05:45 Triglycerides 66 mg/dL (0-150) 11/04/18 05:15 Cholesterol 135 mg/dL (0-200) 11/04/18 05:15 LDL Cholesterol, Calc 91 mg/dL (0-100) 11/04/18 05:15 HDL Cholesterol 31 mg/dL (40-60) L 11/04/18 05:15 Cholesterol/HDL Ratio 4.4 (0.0-5.0) 11/04/18 05:15 Amylase 26 Units/L (25-115) 11/03/18 13:36 Lipase 124 Units/L (73-393) 11/03/18 13:36 Free T4 1.40 ng/dL (0.76-1.46) 11/03/18 13:36 TSH 3rd Generation 1.165 uIU/mL (0.358-3.74) 11/03/18 13:36 Specimen Type Clean catch urine 11/03/18 13:42 Urine Color Yellow (YELLOW) 11/03/18 13:42 Urine Appearance Slightly hazy (CLEAR) 11/03/18 13:42 Urine pH 5.0 (5.0 - 8.0) 11/03/18 13:42 Ur Specific [place] 1.030 (1.000-1.030) 11/03/18 13:42 Urine Protein 2+ (NEGATIVE) 11/03/18 13:42 Urine Glucose (UA) Negative (NEGATIVE) 11/03/18 13:42 Urine Ketones 1+ (NEGATIVE) 11/03/18 13:42 Urine Occult Blood 1+ (NEGATIVE) 11/03/18 13:42 Urine Nitrite Negative (NEGATIVE) 11/03/18 13:42 Urine Bilirubin Negative (NEGATIVE) 11/03/18 13:42 Urine Urobilinogen 1+ (NORMAL) 11/03/18 13:42 Ur Leukocyte Esterase 1+ (NEGATIVE) 11/03/18 13:42 Urine RBC 0-2 /HPF (NONE SEEN) 11/03/18 13:42 Urine WBC 0-2 /HPF (NONE SEEN) 11/03/18 13:42 Ur Squamous Epith Cells Moderate /HPF (NEGATIVE) 11/03/18 13:42 Amorphous Sediment 1+ /HPF (NEGATIVE) 11/03/18 13:42 Urine Bacteria Negative /HPF (NEGATIVE) 11/03/18 13:42 Ur Culture Indicated? No/not indicated 11/03/18 13:42 Digoxin 1.31 ng/mL (0.9-2) 11/04/18 05:15 Urine Opiates Screen Negative (NEG=<300) 11/03/18 13:42 Urine Methadone Screen Negative (NEG=<300) 11/03/18 13:42 Ur Barbiturates Screen Negative (NEG=<200) 11/03/18 13:42 Ur Phencyclidine Scrn Negative (NEG=<25) 11/03/18 13:42 Ur Amphetamines Screen Negative (NEG=<1000) 11/03/18 13:42 U Benzodiazepines Scrn Negative (NEG=<200) 11/03/18 13:42 Urine Cocaine Screen Negative (NEG=<300) 11/03/18 13:42 U Marijuana (THC) Screen Negative (NEG=<50) 11/03/18 13:42 - Plan (1) Atrial fibrillation with RVR Status: Acute Plan: CARDIZEM CD 180MG DAILY, DIETITIAN ASSISTANT, SUPPLEMENTAL OXYGEN, CONTINUE TO MONITOR (2) Anasarca Status: Acute Plan: OBTAIN LIVER US, ABD/PELVIS CT WITH CONTRAST, HEPATITIS PANEL, ECHO (3) Abdominal pain Status: Acute Qualifiers: Abdominal location: lower abdomen, unspecified Qualified Code(s): R10.30 - Lower abdominal pain, unspecified Plan: OBTAIN LIVER US, ABD/PELVIS CT WITH CONTRAST, HEPATITIS PANEL, ECHO (4) Ascites Status: Acute Qualifiers: Ascites type: other type Qualified Code(s): R18.8 - Other ascites Plan: OBTAIN LIVER US, ABD/PELVIS CT WITH CONTRAST, HEPATITIS PANEL, ECHO
[2018-11-05] MEDS: ALBUMIN HUMAN 25%- 100 ML 100 ML IV SCH (12:04)
[2018-11-05] MEDS: CARDIZEM INJ 125 MG VIAL 125 MG in NS 100 ML IV 100 ML IV PRN ×2 (12:25→19:40)
[2018-11-05] MEDS: NS 1000 ML 1,000 ML IV SCH ×3 (12:25→22:00)
[2018-11-05] MEDS ORDERED: LANOXIN INJ IVP ONE ×2 (13:40→21:00)
--- NOTE | 2018-11-05 14:16 | CONS ---
Cardiology Consult Consultation for Day of: Date: 11/05/18 Chief Complaint Chief Complaint: Shortness of breath and swelling Allergies Allergies Allergy/AdvReac Type Severity Reaction Status Date / Time No Known Drug Allergies Allergy Verified 11/03/18 13:01 History of Present Illness History of Present Illness: The patient originally had a sinus infection and was being treated with antibiotics and steroids. She woke up last week and had lower extremity swelling and abdominal pain along with sob. She came to the ED was found to be in Atrial fib with RVR. She is being workup up from a GI standpoint and says she feels better but now feels her heart racing. She denies any history of cardiac problems in the past. Patient was started on a Cardizem gtt which was d/c and she was then started on PO Cardizem. Her HR continued to increase therefore she has now been placed back on the Cardizem gtt. Past Medical History Past Medical History: Diabetes and Hypertension Additional Medical History: Breast cancer s/p rad and chemo Past Surgical History Surgical History: Hysterectomy, Ortho Surgery (lumpectomy for breast cancer) and Tonsillectomy Family History Family Medical History: Diabetes Mellitus, Cancer, Heart Failure and Hypertension Social History Does patient currently use any type of tobacco product: Yes (1/2ppd for 36 years ) Have you used tobacco products in the last 12 months: Yes Type of Tobacco Use: Cigarettes How many years tobacco product used: 36 Does any household member use tobacco: Yes Alcohol Use: Occasionally (socially per the pt) Drug Use: None Medications Home Medications: No Known Drug Allergies Allergy (Verified 11/03/18 13:01) CONTINUE taking the following medications famotidine 20 mg PO DAILY 11/03/18 [History] glyburide 5 mg PO BID 11/03/18 [History] letrozole 2.5 mg PO DAILY 11/03/18 [History] lisinopril-hydrochlorothiazide 1 tab PO DAILY 11/03/18 [History] loratadine-pseudoephedrine [Claritin-D 24 Hour] 1 tab PO DAILY 11/03/18 [History] Review of Systems Respiratory: Shortness of Breath (resolved currently) Cardiovascular: Edema (lower extremity and abdominal swelling) Physical Exam Vital Signs: Temperature 98.5 F Pulse Rate [Apical] 148 Pulse Rate 103 Respiratory Rate 30 Blood Pressure [Left Arm] 120/65 Blood Pressure [Right Arm] 127/58 Blood Pressure 146/70 O2 Sat by Pulse Oximetry 96 Cardiovascular: Irregular (IRREG IRREG with RVR) and Edema (+1 LE edema ) Medical Decision Making Results Reviewed: None Available EKG Results: Atrial Fibrillation (HR 111) Labs reviewed: Yes Radiology Reviewed: Yes Plan Plan: 1. Afib/flutter with RVR- d/c PO Cardizem and will start Metoprolol 25mg BID. Will give Digoxin 0.50mg IV once now and 0.25mg IV 6 hours from first dose. Dig level in the Am. Try to wean Cardizem gtt has HR becomes more controlled. Cont to monitor on telemetry 2. HTN- meds as above 3. Edema- f/u with Echo that's currently pending. 4. ascites- CT with contrast of abdomen results pending.
[2018-11-05] MEDS: PATIENT'S HOME MEDICATION PO SCH (14:31)
--- NOTE | 2018-11-05 14:32 | CT ---
CT OF THE ABDOMEN AND PELVIS WITH CONTRAST HISTORY: Abdominal and bilateral flank pain. Comparison: 11/03/2018 Technique: Multiple axial images of the abdomen and pelvis were obtained from the lung bases to the pubic symphysis follow the administration of IV contrast as well as oral contrast. Dose reduction techniques including Automated Exposure Control (AEC) and adjustment of mA and kV were utlized. Findings: Mild cardiomegaly. There is no pericardial effusion. Redemonstration of small bilateral effusions with adjacent atelectasis of the lungs, most notable in the right. Liver and spleen are normal in size, enhancement characteristics and contour. No focal lesions. The portal vein is patent. No ductal dilitation. Possible tiny gallstone without evidence of gallbladder inflammation. The pancreas is unremarkable. Adrenal glands are normal. Kidneys enhance symmetrically without hydronephrosis or nephrolithiasis. No bowel obstruction or inflammation. Mesenteric edema, small volume ascites and anasarca are all present and very similar to prior. The bladder is normal in appearance. Uterus appears to be absent. Free fluid in the pelvis is similar to prior. No aggressive osseous lesions. IMPRESSION: 1. Grossly similar appearance of 3rd spacing as above. Correlate clinically. Reported By:
[2018-11-05] MEDS ORDERED: FLUVIRIN IM ONE (15:16)
[2018-11-05] MEDS ORDERED: PREVNAR 13 IM ONE (15:16)
[2018-11-05] MEDS ORDERED: TYLENOL 325 MG TAB PO PRN (16:05)
[2018-11-05] MEDS: LASIX IVP SCH (20:45)
[2018-11-05] MEDS: LOPRESSOR TAB 25 MG PO SCH (21:40)
[2018-11-06] MEDS: VALIUM PO PRN ×2 (01:30→23:17)
[2018-11-06 06:17] LABS: BASOPHILS # (AUTO) 0.1 X10^3/uL (0.0-0.1); BASOPHILS % (AUTO) 0.6 % (0.2-1.0); EOSINOPHILS # (AUTO) 0.1 x10^3/uL (0.0-0.2); EOSINOPHILS % (AUTO) 1.3 % (0.9-2.9); HEMATOCRIT 34.6 % (36.0-47.0); HEMOGLOBIN 11.2 g/dL (12.0-16.0); LYMPHOCYTES # (AUTO) 2.5 X10^3/uL (1.3-2.9); LYMPHOCYTES % (AUTO) 21.4 % (21.0-51.0); MEAN CORPUSCULAR HEMOGLOBIN 28.2 pg (27.0-34.0); MEAN CORPUSCULAR HGB CONC 32.5 g/dL (33.0-35.0); MEAN CORPUSCULAR VOLUME 86.9 fL (80.0-100.0); MEAN PLATELET VOLUME 8.2 fL (7.4-11.0); MONOCYTES # (AUTO) 0.7 x10^3/uL (0.3-0.8); MONOCYTES % (AUTO) 5.7 % (0.0-13.0); NEUTROPHILS # (AUTO) 8.3 x10^3/uL (2.2-4.8); PLATELET COUNT 313 X10^3/uL (150.0-450.0); RED BLOOD COUNT 3.98 X10^6/uL (3.5-5.4); RED CELL DISTRIBUTION WIDTH 15.1 % (11.6-16.5); WHITE BLOOD COUNT 11.7 X10^3/uL (3.6-10.0)
--- NOTE | 2018-11-06 06:26 | RAD ---
Chest AP portable Indication dyspnea Comparison: 11/03/2018 Findings: The there is no pneumothorax or effusion. There is no consolidation. There is no pneumothorax. There is cardiomegaly with increased interstitial markings. Monitoring leads obscure detail. Impression: Cardiomegaly and mild edema suggesting developing CHF. Reported By:
[2018-11-06 06:57] LABS: DIGOXIN 1.4 ng/mL (0.9-2)
[2018-11-06 07:05] LABS: ALANINE AMINOTRANSFERASE 29 Units/L (12-78); ALBUMIN 3.2 g/dL (3.4-5.0); ALKALINE PHOSPHATASE 78 Units/L (46-116); ASPARTATE AMINO TRANSFERASE 25 Units/L (15-37); BLOOD UREA NITROGEN 13 mg/dL (7-18); CALCIUM 8.4 mg/dL (8.5-10.1); CHLORIDE 105 mmol/L (98-107); COR NA(FOR HYPERGLY) 141 mmol/L (136-145); CREATININE 0.68 mg/dL (0.55-1.02); SODIUM 140 mmol/L (136-145); TOTAL PROTEIN 6.3 g/dL (6.4-8.2); eGFR NON BLACK RACES > 60 (>60)
[2018-11-06] MEDS: ALBUMIN HUMAN 25%- 100 ML 100 ML IV SCH (08:12)
[2018-11-06] MEDS: LASIX IVP SCH ×2 (08:14→20:30)
[2018-11-06] MEDS: LOPRESSOR TAB 25 MG PO SCH ×2 (08:14→20:30)
[2018-11-06] MEDS: PATIENT'S HOME MEDICATION PO SCH (08:14)
[2018-11-06] MEDS: LOVENOX INJ 80 MG SYR SC SCH ×2 (08:14→20:30)
[2018-11-06] MEDS ORDERED: ZESTORETIC 10/ 12.5MG PO SCH (09:00)
[2018-11-06] MEDS ORDERED: LANOXIN INJ IVP SCH (09:00)
[2018-11-06] MEDS ORDERED: LORATADINE PSEUDOEPHEDRINE PO SCH (09:00)
[2018-11-06] MEDS ORDERED: LASIX IVP ONE (09:43)
[2018-11-06] MEDS ORDERED: LASIX ONE (10:04)
[2018-11-06] MEDS: DIABETA PO SCH ×2 (10:08→20:30)
[2018-11-06] MEDS: PEPCID TAB 20 MG PO SCH (10:08)
[2018-11-06] MEDS: ALDACTONE TAB 25 MG PO SCH (10:09)
--- NOTE | 2018-11-06 10:54 | DR.CONSULT ---
Consult - Consultation for Day of: Date: 11/06/18 - Chief Complaint Chief Complaint: Patient referred for abdominal pain and ascites. Patient with complaints of abdominal pressure. - History of Present Illness History of Present Illness: Patient is a 47yo female who was referred for abdominal pain and ascites. Patient with complaints of abdominal pressure especially after eating in the upper abdomen. Patient denies dysphagia, dyspepsia, nausea, vomiting, constipation, diarrhea, melena and hematochezia. She states she had a colonoscopy many years ago in [place], no polyps. EGD about 5-6years ago that showed hiatal hernia. Hgb 11.2, Hct 34.6, Plt 313, T. Bili 0.40, AST 25, ALT 29, Alk Phos 78. Abdomen and pelvis CT with contrast showed mesenteric edema, small volume ascites with anasarca. - Past Medical History Past Medical History: Hypertension, Diabetes Additional Medical History: Breast cancer s/p rad and chemo - Past Surgical History Surgical History: Hysterectomy, Ortho Surgery (lumpectomy for breast cancer), Tonsillectomy - Family History Family Medical History: Diabetes Mellitus, Cancer, Heart Failure, Hypertension - Social History Does patient currently use any type of tobacco product: Yes (1/2ppd for 36 years) Have you used tobacco products in the last 12 months: Yes Type of Tobacco Use: Cigarettes How many years tobacco product used: 36 Does any household member use tobacco: Yes Alcohol Use: Occasionally (socially per the pt) Drug Use: None - Medications Home Medications: No Known Drug Allergies Allergy (Verified 11/03/18 13:01) CONTINUE taking the following medications famotidine 20 mg PO DAILY 11/03/18 [History] glyburide 5 mg PO BID 11/03/18 [History] letrozole 2.5 mg PO DAILY 11/03/18 [History] lisinopril-hydrochlorothiazide 1 tab PO DAILY 11/03/18 [History] loratadine-pseudoephedrine [Claritin-D 24 Hour] 1 tab PO DAILY 11/03/18 [History] - Review of Systems Constitutional: No Symptoms Reported Eyes: No Symptoms Reported ENT: No Symptoms Reported Respiratory: No Symptoms Reported Cardiovascular: No Symptoms Reported Gastrointestinal: See HPI (Upper abdominal pressure). denies: Nausea, Vomiting, Abdominal Pain, Diarrhea, Constipation, Melena, Hematochezia Genitourinary: No Symptoms Reported Musculoskeletal: No Symptoms Reported Skin: No Symptoms Reported Neurological: No Symptoms Reported - Physical Exam Vital Signs: Temperature 98.4 F Pulse Rate [Apical] 148 Pulse Rate 76 Respiratory Rate 26 Blood Pressure [Left Arm] 120/65 Blood Pressure [Right Arm] 127/58 Blood Pressure 157/80 O2 Sat by Pulse Oximetry 93 Oriented: Normal Eyes: Normal Ear: Normal Nose: Normal Throat: Normal Respiratory: Clear Throughout Cardiovascular: Normal Auscultation: Bowel Sounds: Normal Palpation: Normal, Other (distention noted). negative: Spleen Enlarged, Liver Enlarged, Mass Pulsatile Tenderness: Normal (no tenderness) Skin: Normal Musculoskeletal: Normal Psychiatric: Normal Mood Description: Calm Affect: Normal Speech Pattern: Clear, Appropriate - Plan Plan: Assessment. 1. Epigastric pain dyspepsia r/o gastric ulcer, gastric adenocarcinoma. 2. Ascites possible portal hypertensive gastropathy r/o esophageal varicies. Plan. 1. EGD when stable from cardiac standpoint. 2. Hepatitis profile, abdnormal LFT Panel. Plan reviewed with Dr. Griffin - Allergies Allergies/Adverse Reactions: Allergies Allergy/AdvReac Type Severity Reaction Status Date / Time No Known Drug Allergies Allergy Verified 11/03/18 13:01
[2018-11-06 12:11] LABS: IRON 41 ug/dL (50-175)
--- NOTE | 2018-11-06 13:07 | PCM.PROG ---
Progress Note - Progress Note for Day of Date of Exam: 11/05/18 - Subjective Subjective: WAS ADMITTED FOR ATRIAL FIBRILLATION, ANASARCA, ASCITES, AND ABDOMINAL PAIN. THERE WAS EVIDENCE OF SMALL RIGHT PLEURAL EFFUSION AND COLONIC DIVERTICULOSIS ON ABDOMEN CT WITHOUT CONTRAST. TODAY, SHE IS ALERT AND ORIENTED, LYING IN BED ON MORNING ROUNDS. SHE CONTINUES WITH COMPLAINTS OF SHORTNESS OF BREATH AND GENERALIZED SWELLING. SHE ALSO CONTINUES WITH DIFFUSE ABDOMINAL PAIN. SHE IS NOTED WITH GENERALIZED 1+ PITTING EDEMA. ACCOUNTS RECEIVABLE SPECIALIST REVEALS ATRIAL FIBRILLATION WITH HR IN THE 150s AT THIS TIME. THE CARDIZEM DRIP WAS DISCONTINUED YESTERDAY AND SHE WAS PLACED ON PO CARDIZEM. HER VITALS THIS MORNING ARE 97.9-152-24-95%-145/97. LABS WERE OBTAINED. ABNORMAL LAB VALUES INCLUDE THE FOLLOWING: WBC 11.7, HGB 11.0, HCT 34.0, CALCIUM 8.1, TOTAL PROTEIN 5.9, ALBUMIN 2.8. HEPATITIS PANEL IS PENDING. TODAY, WE WILL D/C THE CARDIZEM DRIP AND START CARDIZEM CD 180MG PO DAILY. A LIVER ULTRASOUND WAS OBTAINED THIS MORNING AND REVEALED: Mild hepatomegaly. Thickened gallbladder wall (5 mm) may be on the basis of a hypoproteinemic state. No cholelithiasis. Ascites is noted in all 4 quadrants. SHE IS SCHEDULED FOR AN ECHO AND AN ABDOMEN/PELVIS CT WITH CONTRAST THIS MORNING. TODAY, WE WILL PLACE HER BACK ON THE CARDIZEM DRIP AND CONSULT , SITE HEAD. WE WILL START ALBUMIN 25% IV DAILY. OTHERWISE, WE WILL CONTINUE WITH CURRENT PLAN OF CARE. WE WILL FOLLOW UP WITH AM LABS AND CONTINUE TO MONITOR. - Past Medical Family Social History Past Med/Fam/Surg Hx: No changes since H&P Allergies: Allergies No Known Drug Allergies Allergy (Verified 11/03/18 13:01) - Review of Systems ROS: No change since H&P - Vital Signs and I&O's Vital Signs: Temperature 98.4 F Pulse Rate [Apical] 148 Pulse Rate 76 Respiratory Rate 26 Blood Pressure [Left Arm] 120/65 Blood Pressure [Right Arm] 127/58 Blood Pressure 157/80 O2 Sat by Pulse Oximetry 93 Intake and Output: Intake & Output 11/04/18 11/05/18 11/06/18 11/07/18 11:59 11:59 11:59 11:59 Intake Total 2207 / 2207 3155 / 3155 2801.5 / 2801.5 Output Total 200 / 200 600 / 600 2100 / 2100 Balance 2006 2555 / 2555 701.5 / 701.5 - Physical Exam Oriented: Normal Eyes: Normal Ear: Normal Nose: Normal Throat: Normal Respiratory: Diminished Cardiovascular: Normal, Tachycardia : Normal Auscultation: Bowel Sounds: Normal Palpation: Normal Tenderness: Normal (no tenderness) Skin: Normal Musculoskeletal: Normal Psychiatric: Normal Mood Description: Calm Affect: Normal Speech Pattern: Clear, Appropriate - Laboratory and Diagnostics Result Diagrams: 11/06/18 05:09 11/06/18 05:09 Labs: Laboratory WBC 11.7 X10^3/uL (3.6-10.0) H 11/06/18 05:09 RBC 3.98 X10^6/uL (3.5-5.4) 11/06/18 05:09 Hgb 11.2 g/dL (12.0-16.0) L 11/06/18 05:09 Hct 34.6 % (36.0-47.0) L 11/06/18 05:09 MCV 86.9 fL (80.0-100.0) 11/06/18 05:09 MCH 28.2 pg (27.0-34.0) 11/06/18 05:09 MCHC 32.5 g/dL (33.0-35.0) L 11/06/18 05:09 RDW 15.1 % (11.6-16.5) 11/06/18 05:09 Plt Count 313 X10^3/uL (150.0-450.0) 11/06/18 05:09 MPV 8.2 fL (7.4-11.0) 11/06/18 05:09 Neut % (Auto) 71.0 % (42.0-75.0) 11/06/18 05:09 Lymph % (Auto) 21.4 % (21.0-51.0) 11/06/18 05:09 [place] % (Auto) 5.7 % (0.0-13.0) 11/06/18 05:09 Eos % (Auto) 1.3 % (0.9-2.9) 11/06/18 05:09 Baso % (Auto) 0.6 % (0.2-1.0) 11/06/18 05:09 Neut # (Auto) 8.3 x10^3/uL (2.2-4.8) H 11/06/18 05:09 Lymph # (Auto) 2.5 X10^3/uL (1.3-2.9) 11/06/18 05:09 [place] # (Auto) 0.7 x10^3/uL (0.3-0.8) 11/06/18 05:09 Eos # (Auto) 0.1 x10^3/uL (0.0-0.2) 11/06/18 05:09 Baso # (Auto) 0.1 X10^3/uL (0.0-0.1) 11/06/18 05:09 Absolute Nucleated RBC 0.0 /100WBC 11/06/18 05:09 INR Target Range - 11/03/18 13:36 INR 1.14 (0.8-1.3) 11/03/18 13:36 APTT 30.7 SECONDS (22.9-36.5) 11/03/18 13:36 PTT Comment - 11/03/18 13:36 D-Dimer 271 ng/mL (0-400) 11/03/18 13:36 Sodium 140 mmol/L (136-145) 11/06/18 05:09 Corrected Sodium 141 mmol/L (136-145) 11/06/18 05:09 Potassium 3.5 mmol/L (3.5-5.1) 11/06/18 05:09 Chloride 105 mmol/L (98-107) 11/06/18 05:09 Carbon Dioxide 25.0 mmol/L (21-32) 11/06/18 05:09 BUN 13 mg/dL (7-18) 11/06/18 05:09 Creatinine 0.68 mg/dL (0.55-1.02) 11/06/18 05:09 Est GFR (MDRD) Af Amer > 60 (>60) 11/06/18 05:09 Est GFR (MDRD) Non-Af > 60 (>60) 11/06/18 05:09 Glucose 121 mg/dL (65-99) H 11/06/18 05:09 POC Glucose (mg/dL) 198 mg/dL (65-99) H 11/06/18 11:39 Calcium 8.4 mg/dL (8.5-10.1) L 11/06/18 05:09 Corrected Calcium 9.0 mg/dL (8.5-10.1) 11/06/18 05:09 Magnesium 2.3 mg/dL (1.7-2.9) 11/03/18 13:36 Iron 41 ug/dL (50-175) L 11/06/18 11:14 Transferrin 271 mg/dL (202-364) 11/06/18 11:14 Ferritin 51 ng/mL (8-252) 11/06/18 11:14 Total Bilirubin 0.40 mg/dL (0.2-1.0) 11/06/18 05:09 AST 25 Units/L (15-37) 11/06/18 05:09 ALT 29 Units/L (12-78) 11/06/18 05:09 Alkaline Phosphatase 78 Units/L (46-116) 11/06/18 05:09 Ammonia 18 umol/L (11-32) 11/04/18 10:45 Creatine Kinase 71 Units/L (26-192) 11/04/18 07:40 CK-MB (CK-2) 2.5 ng/mL (0-4.0) 11/04/18 07:40 CK/CKMB % Calc 3.5 % (<4) 11/04/18 07:40 Troponin I 0.07 ng/mL (0-1.5) 11/04/18 07:40 B-Natriuretic Peptide 384 pg/mL (0-79) H 11/06/18 05:09 Total Protein 6.3 g/dL (6.4-8.2) L 11/06/18 05:09 Albumin 3.2 g/dL (3.4-5.0) L 11/06/18 05:09 Globulin 3.1 g/dL (2.5-4.5) 11/06/18 05:09 Albumin/Globulin Ratio 1.0 Ratio (1.1-2.1) L 11/06/18 05:09 Triglycerides 66 mg/dL (0-150) 11/04/18 05:15 Cholesterol 135 mg/dL (0-200) 11/04/18 05:15 LDL Cholesterol, Calc 91 mg/dL (0-100) 11/04/18 05:15 HDL Cholesterol 31 mg/dL (40-60) L 11/04/18 05:15 Cholesterol/HDL Ratio 4.4 (0.0-5.0) 11/04/18 05:15 Amylase 26 Units/L (25-115) 11/03/18 13:36 Lipase 124 Units/L (73-393) 11/03/18 13:36 Free T4 1.40 ng/dL (0.76-1.46) 11/03/18 13:36 TSH 3rd Generation 1.165 uIU/mL (0.358-3.74) 11/03/18 13:36 Specimen Type Clean catch urine 11/03/18 13:42 Urine Color Yellow (YELLOW) 11/03/18 13:42 Urine Appearance Slightly hazy (CLEAR) 11/03/18 13:42 Urine pH 5.0 (5.0 - 8.0) 11/03/18 13:42 Ur Specific [place] 1.030 (1.000-1.030) 11/03/18 13:42 Urine Protein 2+ (NEGATIVE) 11/03/18 13:42 Urine Glucose (UA) Negative (NEGATIVE) 11/03/18 13:42 Urine Ketones 1+ (NEGATIVE) 11/03/18 13:42 Urine Occult Blood 1+ (NEGATIVE) 11/03/18 13:42 Urine Nitrite Negative (NEGATIVE) 11/03/18 13:42 Urine Bilirubin Negative (NEGATIVE) 11/03/18 13:42 Urine Urobilinogen 1+ (NORMAL) 11/03/18 13:42 Ur Leukocyte Esterase 1+ (NEGATIVE) 11/03/18 13:42 Urine RBC 0-2 /HPF (NONE SEEN) 11/03/18 13:42 Urine WBC 0-2 /HPF (NONE SEEN) 11/03/18 13:42 Ur Squamous Epith Cells Moderate /HPF (NEGATIVE) 11/03/18 13:42 Amorphous Sediment 1+ /HPF (NEGATIVE) 11/03/18 13:42 Urine Bacteria Negative /HPF (NEGATIVE) 11/03/18 13:42 Ur Culture Indicated? No/not indicated 11/03/18 13:42 Digoxin 1.40 ng/mL (0.9-2) 11/06/18 05:09 Urine Opiates Screen Negative (NEG=<300) 11/03/18 13:42 Urine Methadone Screen Negative (NEG=<300) 11/03/18 13:42 Ur Barbiturates Screen Negative (NEG=<200) 11/03/18 13:42 Ur Phencyclidine Scrn Negative (NEG=<25) 11/03/18 13:42 Ur Amphetamines Screen Negative (NEG=<1000) 11/03/18 13:42 U Benzodiazepines Scrn Negative (NEG=<200) 11/03/18 13:42 Urine Cocaine Screen Negative (NEG=<300) 11/03/18 13:42 U Marijuana (THC) Screen Negative (NEG=<50) 11/03/18 13:42 - Plan (1) Atrial fibrillation with RVR Status: Acute Plan: CONSULT [facility], ACCOUNTS RECEIVABLE SPECIALIST, SUPPLEMENTAL OXYGEN, CONTINUE TO MONITOR (2) Anasarca Status: Acute Plan: LASIX 20MG IV BID, OBTAIN LIVER US, ABD/PELVIS CT WITH CONTRAST, HEPATITIS PANEL, ECHO (3) Abdominal pain Status: Acute Qualifiers: Abdominal location: lower abdomen, unspecified Qualified Code(s): R10.30 - Lower abdominal pain, unspecified Plan: OBTAIN ABD/PELVIS CT WITH CONTRAST, HEPATITIS PANEL, ECHO (4) Ascites Status: Acute Qualifiers: Ascites type: other type Qualified Code(s): R18.8 - Other ascites Plan: OBTAIN ABD/PELVIS CT WITH CONTRAST, HEPATITIS PANEL, ECHO
[2018-11-06] MEDS: CARDIZEM INJ 125 MG VIAL 125 MG in NS 100 ML IV 100 ML IV PRN ×2 (13:15→23:15)
[2018-11-06] MEDS ORDERED: LANOXIN INJ IVP ONE (13:27)
[2018-11-06] MEDS: SNACK - Diabetic Appropriate PO SCH (20:00)
[2018-11-06 20:40] LABS: HEPATITIS A ANTIBODY IGM Negative (Negative)
[2018-11-07 06:18] LABS: BASOPHILS # (AUTO) 0.1 X10^3/uL (0.0-0.1); BASOPHILS % (AUTO) 1.1 % (0.2-1.0); EOSINOPHILS # (AUTO) 0.2 x10^3/uL (0.0-0.2); EOSINOPHILS % (AUTO) 1.7 % (0.9-2.9); HEMATOCRIT 34.4 % (36.0-47.0); HEMOGLOBIN 11.2 g/dL (12.0-16.0); LYMPHOCYTES # (AUTO) 2.6 X10^3/uL (1.3-2.9); LYMPHOCYTES % (AUTO) 24.3 % (21.0-51.0); MEAN CORPUSCULAR HEMOGLOBIN 28.2 pg (27.0-34.0); MEAN CORPUSCULAR HGB CONC 32.7 g/dL (33.0-35.0); MEAN CORPUSCULAR VOLUME 86.3 fL (80.0-100.0); MEAN PLATELET VOLUME 8.2 fL (7.4-11.0); MONOCYTES # (AUTO) 0.7 x10^3/uL (0.3-0.8); MONOCYTES % (AUTO) 6.5 % (0.0-13.0); NEUTROPHILS # (AUTO) 7.2 x10^3/uL (2.2-4.8); NEUTROPHILS % (AUTO) 66.4 % (42.0-75.0); PLATELET COUNT 285 X10^3/uL (150.0-450.0); RED BLOOD COUNT 3.98 X10^6/uL (3.5-5.4); RED CELL DISTRIBUTION WIDTH 15.5 % (11.6-16.5); WHITE BLOOD COUNT 10.9 X10^3/uL (3.6-10.0)
[2018-11-07 06:22] LABS: HEPATITIS B CORE IGM Negative (Negative); HEPATITIS B SURFACE ANTIGEN Negative (Negative)
[2018-11-07 06:47] LABS: ALANINE AMINOTRANSFERASE 23 Units/L (12-78); ALBUMIN 3.3 g/dL (3.4-5.0); ALKALINE PHOSPHATASE 74 Units/L (46-116); ASPARTATE AMINO TRANSFERASE 22 Units/L (15-37); BLOOD UREA NITROGEN 13 mg/dL (7-18); CALCIUM 8.8 mg/dL (8.5-10.1); CARBON DIOXIDE 27.9 mmol/L (21-32); CHLORIDE 103 mmol/L (98-107); COR CA(FOR HYPOALB) 9.4 mg/dL (8.5-10.1); COR NA(FOR HYPERGLY) 141 mmol/L (136-145); CREATININE 0.61 mg/dL (0.55-1.02); SODIUM 141 mmol/L (136-145); TOTAL PROTEIN 6.3 g/dL (6.4-8.2); eGFR NON BLACK RACES > 60 (>60)
--- NOTE | 2018-11-07 07:16 | RAD ---
HISTORY: Shortness of breath Study: Chest AP portable Comparison: 11/06/2018 Findings: The heart is enlarged. Mild congestive heart failure is present improved when compared with the prior examination. No acute alveolar infiltrates, alveolar edema, or pleural effusions are identified. The bony thorax is unremarkable. IMPRESSION: Mild cardiomegaly with improving congestive heart failure Reported By:
[2018-11-07] MEDS: ALDACTONE TAB 25 MG PO SCH (09:00)
[2018-11-07] MEDS: ALBUMIN HUMAN 25%- 100 ML 100 ML IV SCH (09:00)
[2018-11-07] MEDS: DIABETA PO SCH ×2 (09:00→21:18)
[2018-11-07] MEDS: PEPCID TAB 20 MG PO SCH (09:22)
[2018-11-07] MEDS: LOPRESSOR TAB 25 MG PO SCH ×2 (09:22→21:18)
[2018-11-07] MEDS: PATIENT'S HOME MEDICATION PO SCH (09:22)
[2018-11-07] MEDS: ZESTRIL TAB 10 MG PO SCH (09:23)
[2018-11-07] MEDS: LASIX IVP SCH ×2 (09:23→21:17)
[2018-11-07] MEDS ORDERED: LANOXIN INJ IVP SCH (10:00)
[2018-11-07] MEDS ORDERED: LOPRESSOR TAB 25 MG PO ONE (17:46)
[2018-11-07] MEDS ORDERED: LOPRESSOR TAB 25 MG ONE (17:48)
--- NOTE | 2018-11-07 19:59 | PCM.PROG ---
Progress Note - Progress Note for Day of Date of Exam: 11/06/18 - Subjective Subjective: WAS ADMITTED FOR ATRIAL FIBRILLATION, ANASARCA, ASCITES, AND ABDOMINAL PAIN. SHE REMAINS ON THE CARDIZEM DRIP TODAY. DID START HER ON METOPROLOL XR 25MG DAILY YESTERDAY. TODAY, SHE IS ALERT AND ORIENTED, LYING IN BED ON MORNING ROUNDS. SHE CONTINUES WITH COMPLAINTS OF SHORTNESS OF BREATH AND GENERALIZED SWELLING. SHE ALSO CONTINUES WITH GENERALIZED SWELLING AND INTERMITTENT ABDOMINAL PAIN. DICTAPHONE OPERATOR REVEALS ATRIAL FIBRILLATION WITH HR IN THE 70s AT THIS TIME. THE CARDIZEM DRIP WAS. HER VITALS THIS MORNING ARE 98.4-78-27-99%-142/74. LABS WERE OBTAINED. ABNORMAL LAB VALUES INCLUDE THE FOLLOWING: WBC 11.7, HGB 11.2, HCT 34.6, GLUCOSE 121, CALCIUM 8.4, BNP 384, TOTAL PROTEIN 6.3, ALBUMIN 3.2. HEPATITIS PANEL IS PENDING. AN ABDOMEN/PELVIS CT WAS OBTAINED YESTERDAY AND REVEALED: Grossly similar appearance of 3rd spacing. ECHO REVEALED AN EJECTION FRACTION OF 30-35% WITH MOD/SEVERE MR/TR. DILATED LV,LA,RA. TODAY, WE WILL ATTEMPT TO D/C THE CARDIZEM DRIP AGAIN. WE WILL START ALDACTONE 25MG PO DAILY, LASIX 40MG IV Q12H, LISINOPRIL 10MG PO DAILY, RESTRICT FLUIDS TO 1,000ML/DAY, AND START A [employer] DIET. WE WILL OBTAIN A GGT. OTHERWISE, WE WILL CONSULT WITH . WE WILL FOLLOW UP WITH AM LABS AND CONTINUE TO MONITOR. - Past Medical Family Social History Past Med/Fam/Surg Hx: No changes since H&P (Hearing adequate the patient is doing much better today. Her atrial flutter is well controlled with metoprolol and digoxin. We switched her to p.o. meds today. We discontinued the IV Cardizem. We started the patient on Eliquis today and discontinued the Lovenox. She will need further evaluation as an outpatient. Her cardiomyopathy is likely due to tachycardia and her severe valvular insufficiency. We will optimize her medical therapy as you are doing with beta-blockers and BARB inhibitor. She will need to go home on an oral loop diuretic as well. We will reassess her LV function in the next couple of months once her weight has been well controlled. Her mitral insufficiency is moderate to severe. If with improvement in her function and better rate control this does not decrease she might be a good candidate in the future for a mitral valve clip. Because of the cardiomyopathy and the anteroseptal wall hypokinesis we will going to do an ischemic evaluation as an outpatient. Follow-up with us in approximately 1-2 weeks.) Allergies: Allergies No Known Drug Allergies Allergy (Verified 11/03/18 13:01) - Review of Systems ROS: No change since H&P - Vital Signs and I&O's Vital Signs: Temperature 97.7 F Pulse Rate [Apical] 148 Pulse Rate 144 Respiratory Rate 23 Blood Pressure [Left Arm] 120/65 Blood Pressure [Right Arm] 127/58 Blood Pressure 151/78 O2 Sat by Pulse Oximetry 93 Intake and Output: Intake & Output 11/05/18 11/06/18 11/07/18 11/08/18 11:59 11:59 11:59 11:59 Intake Total 3155 / 3155 2801.5 / 2801.5 2047.5 / 2047.5 860 / 860 Output Total 600 / 600 2100 / 2100 6100 / 6100 2100 / 2100 Balance 2555 / 2555 701.5 / 701.5 -4052.5 / -4052.5 -1240 / -1240 - Physical Exam Oriented: Normal Eyes: Normal Ear: Normal Nose: Normal Throat: Normal Respiratory: Diminished Cardiovascular: Normal, Irregular, Systolic (2/6 blowing systolic murmur at the left sternal border), Edema (Trace to mild edema in the pretibial region.) : Normal Auscultation: Bowel Sounds: Normal Palpation: Normal Tenderness: Normal (no tenderness) Skin: Normal Musculoskeletal: Normal Psychiatric: Normal Mood Description: Calm Affect: Normal Speech Pattern: Clear, Appropriate - Laboratory and Diagnostics Result Diagrams: 11/07/18 05:50 11/07/18 05:50 Labs: Laboratory WBC 10.9 X10^3/uL (3.6-10.0) H 11/07/18 05:50 RBC 3.98 X10^6/uL (3.5-5.4) 11/07/18 05:50 Hgb 11.2 g/dL (12.0-16.0) L 11/07/18 05:50 Hct 34.4 % (36.0-47.0) L 11/07/18 05:50 MCV 86.3 fL (80.0-100.0) 11/07/18 05:50 MCH 28.2 pg (27.0-34.0) 11/07/18 05:50 MCHC 32.7 g/dL (33.0-35.0) L 11/07/18 05:50 RDW 15.5 % (11.6-16.5) 11/07/18 05:50 Plt Count 285 X10^3/uL (150.0-450.0) 11/07/18 05:50 MPV 8.2 fL (7.4-11.0) 11/07/18 05:50 Neut % (Auto) 66.4 % (42.0-75.0) 11/07/18 05:50 Lymph % (Auto) 24.3 % (21.0-51.0) 11/07/18 05:50 [place] % (Auto) 6.5 % (0.0-13.0) 11/07/18 05:50 Eos % (Auto) 1.7 % (0.9-2.9) 11/07/18 05:50 Baso % (Auto) 1.1 % (0.2-1.0) H 11/07/18 05:50 Neut # (Auto) 7.2 x10^3/uL (2.2-4.8) H 11/07/18 05:50 Lymph # (Auto) 2.6 X10^3/uL (1.3-2.9) 11/07/18 05:50 [place] # (Auto) 0.7 x10^3/uL (0.3-0.8) 11/07/18 05:50 Eos # (Auto) 0.2 x10^3/uL (0.0-0.2) 11/07/18 05:50 Baso # (Auto) 0.1 X10^3/uL (0.0-0.1) 11/07/18 05:50 Absolute Nucleated RBC 0.0 /100WBC 11/07/18 05:50 INR Target Range - 11/03/18 13:36 INR 1.14 (0.8-1.3) 11/03/18 13:36 APTT 30.7 SECONDS (22.9-36.5) 11/03/18 13:36 PTT Comment - 11/03/18 13:36 D-Dimer 271 ng/mL (0-400) 11/03/18 13:36 Sodium 141 mmol/L (136-145) 11/07/18 05:50 Corrected Sodium 141 mmol/L (136-145) 11/07/18 05:50 Potassium 3.5 mmol/L (3.5-5.1) 11/07/18 05:50 Chloride 103 mmol/L (98-107) 11/07/18 05:50 Carbon Dioxide 27.9 mmol/L (21-32) 11/07/18 05:50 BUN 13 mg/dL (7-18) 11/07/18 05:50 Creatinine 0.61 mg/dL (0.55-1.02) 11/07/18 05:50 Est GFR (MDRD) Af Amer > 60 (>60) 11/07/18 05:50 Est GFR (MDRD) Non-Af > 60 (>60) 11/07/18 05:50 Glucose 113 mg/dL (65-99) H 11/07/18 05:50 POC Glucose (mg/dL) 95 mg/dL (65-99) 11/07/18 17:51 Calcium 8.8 mg/dL (8.5-10.1) 11/07/18 05:50 Corrected Calcium 9.4 mg/dL (8.5-10.1) 11/07/18 05:50 Magnesium 2.3 mg/dL (1.7-2.9) 11/03/18 13:36 Iron 41 ug/dL (50-175) L 11/06/18 11:14 Transferrin 271 mg/dL (202-364) 11/06/18 11:14 Ferritin 51 ng/mL (8-252) 11/06/18 11:14 Total Bilirubin 0.40 mg/dL (0.2-1.0) 11/07/18 05:50 AST 22 Units/L (15-37) 11/07/18 05:50 ALT 23 Units/L (12-78) 11/07/18 05:50 Alkaline Phosphatase 74 Units/L (46-116) 11/07/18 05:50 Ammonia 18 umol/L (11-32) 11/04/18 10:45 Creatine Kinase 71 Units/L (26-192) 11/04/18 07:40 CK-MB (CK-2) 2.5 ng/mL (0-4.0) 11/04/18 07:40 CK/CKMB % Calc 3.5 % (<4) 11/04/18 07:40 Troponin I 0.07 ng/mL (0-1.5) 11/04/18 07:40 B-Natriuretic Peptide 384 pg/mL (0-79) H 11/06/18 05:09 Total Protein 6.3 g/dL (6.4-8.2) L 11/07/18 05:50 Albumin 3.3 g/dL (3.4-5.0) L 11/07/18 05:50 Globulin 3.0 g/dL (2.5-4.5) 11/07/18 05:50 Albumin/Globulin Ratio 1.1 Ratio (1.1-2.1) 11/07/18 05:50 Triglycerides 66 mg/dL (0-150) 11/04/18 05:15 Cholesterol 135 mg/dL (0-200) 11/04/18 05:15 LDL Cholesterol, Calc 91 mg/dL (0-100) 11/04/18 05:15 HDL Cholesterol 31 mg/dL (40-60) L 11/04/18 05:15 Cholesterol/HDL Ratio 4.4 (0.0-5.0) 11/04/18 05:15 Amylase 26 Units/L (25-115) 11/03/18 13:36 Lipase 124 Units/L (73-393) 11/03/18 13:36 Free T4 1.40 ng/dL (0.76-1.46) 11/03/18 13:36 TSH 3rd Generation 1.165 uIU/mL (0.358-3.74) 11/03/18 13:36 Specimen Type Clean catch urine 11/03/18 13:42 Urine Color Yellow (YELLOW) 11/03/18 13:42 Urine Appearance Slightly hazy (CLEAR) 11/03/18 13:42 Urine pH 5.0 (5.0 - 8.0) 11/03/18 13:42 Ur Specific [place] 1.030 (1.000-1.030) 11/03/18 13:42 Urine Protein 2+ (NEGATIVE) 11/03/18 13:42 Urine Glucose (UA) Negative (NEGATIVE) 11/03/18 13:42 Urine Ketones 1+ (NEGATIVE) 11/03/18 13:42 Urine Occult Blood 1+ (NEGATIVE) 11/03/18 13:42 Urine Nitrite Negative (NEGATIVE) 11/03/18 13:42 Urine Bilirubin Negative (NEGATIVE) 11/03/18 13:42 Urine Urobilinogen 1+ (NORMAL) 11/03/18 13:42 Ur Leukocyte Esterase 1+ (NEGATIVE) 11/03/18 13:42 Urine RBC 0-2 /HPF (NONE SEEN) 11/03/18 13:42 Urine WBC 0-2 /HPF (NONE SEEN) 11/03/18 13:42 Ur Squamous Epith Cells Moderate /HPF (NEGATIVE) 11/03/18 13:42 Amorphous Sediment 1+ /HPF (NEGATIVE) 11/03/18 13:42 Urine Bacteria Negative /HPF (NEGATIVE) 11/03/18 13:42 Ur Culture Indicated? No/not indicated 11/03/18 13:42 Digoxin 0.86 ng/mL (0.9-2) L 11/07/18 05:50 Urine Opiates Screen Negative (NEG=<300) 11/03/18 13:42 Urine Methadone Screen Negative (NEG=<300) 11/03/18 13:42 Ur Barbiturates Screen Negative (NEG=<200) 11/03/18 13:42 Ur Phencyclidine Scrn Negative (NEG=<25) 11/03/18 13:42 Ur Amphetamines Screen Negative (NEG=<1000) 11/03/18 13:42 U Benzodiazepines Scrn Negative (NEG=<200) 11/03/18 13:42 Urine Cocaine Screen Negative (NEG=<300) 11/03/18 13:42 U Marijuana (THC) Screen Negative (NEG=<50) 11/03/18 13:42 Hepatitis A IgM Ab Negative (Negative) 11/04/18 10:45 Hep Bs Antigen Negative (Negative) 11/04/18 10:45 Hep Bs Ag Confirmation TNP 11/04/18 10:45 Hep B Core IgM Ab Negative (Negative) 11/04/18 10:45 Hepatitis C Ab Index 0.08 IV 11/04/18 10:45 Hepatitis C Interp Negative (Negative) 11/04/18 10:45 Hepatitis Interpret See note 11/04/18 10:45 - Plan (1) Atrial fibrillation with RVR Status: Acute Plan: CONSULT [place], DICTAPHONE OPERATOR, SUPPLEMENTAL OXYGEN, CONTINUE TO MONITOR (2) Anasarca Status: Acute Plan: LASIX 20MG IV BID, OBTAIN LIVER US, ABD/PELVIS CT WITH CONTRAST, HEPATITIS PANEL, ECHO (3) Abdominal pain Status: Acute Qualifiers: Abdominal location: lower abdomen, unspecified Qualified Code(s): R10.30 - Lower abdominal pain, unspecified Plan: CONSULT GI, HEPATITIS PANEL (4) Ascites Status: Acute Qualifiers: Ascites type: other type Qualified Code(s): R18.8 - Other ascites Plan: CONSULT GI, HEPATITIS PANEL (5) CHF (congestive heart failure) Status: Acute Qualifiers: Heart failure type: unspecified Heart failure chronicity: acute Qualified Code(s): I50.9 - Heart failure, unspecified Plan: ALDACTONE 25MG PO DAILY, LASIX 40MG IV Q12H, LISINOPRIL 10MG PO DAILY, CONTINUE TO MONITOR
[2018-11-07] MEDS: SNACK - Diabetic Appropriate PO SCH ×2 (20:00)
[2018-11-07] MEDS: ELIQUIS PO SCH (21:17)
[2018-11-07] MEDS: VALIUM PO PRN (23:52)
--- NOTE | 2018-11-08 06:28 | RAD ---
right lung baseHISTORY: Shortness of breath Study: Chest AP portable Comparison: November 07, 2018 Findings: The heart remains enlarged. No definite congestive heart failure is present on today's examination. The lungs are mildly hypo inflated. No acute alveolar infiltrates or pleural effusions are identified. There is a small focus of subsegmental atelectasis in the right lung base. The bony thorax is unremarkable. IMPRESSION: Continued cardiomegaly but without congestive heart failure on today's examination Hypo inflation Minimal subsegmental atelectasis Reported By:
[2018-11-08 06:41] LABS: BASOPHILS # (AUTO) 0.1 X10^3/uL (0.0-0.1); BASOPHILS % (AUTO) 0.7 % (0.2-1.0); EOSINOPHILS # (AUTO) 0.2 x10^3/uL (0.0-0.2); EOSINOPHILS % (AUTO) 1.9 % (0.9-2.9); HEMATOCRIT 34.7 % (36.0-47.0); HEMOGLOBIN 11.4 g/dL (12.0-16.0); LYMPHOCYTES # (AUTO) 2.5 X10^3/uL (1.3-2.9); LYMPHOCYTES % (AUTO) 24.4 % (21.0-51.0); MEAN CORPUSCULAR HEMOGLOBIN 28.5 pg (27.0-34.0); MEAN CORPUSCULAR HGB CONC 32.9 g/dL (33.0-35.0); MEAN CORPUSCULAR VOLUME 86.6 fL (80.0-100.0); MEAN PLATELET VOLUME 8.1 fL (7.4-11.0); MONOCYTES # (AUTO) 0.7 x10^3/uL (0.3-0.8); MONOCYTES % (AUTO) 6.4 % (0.0-13.0); NEUTROPHILS # (AUTO) 6.9 x10^3/uL (2.2-4.8); NEUTROPHILS % (AUTO) 66.6 % (42.0-75.0); PLATELET COUNT 280 X10^3/uL (150.0-450.0); RED BLOOD COUNT 4.01 X10^6/uL (3.5-5.4); RED CELL DISTRIBUTION WIDTH 14.9 % (11.6-16.5); WHITE BLOOD COUNT 10.4 X10^3/uL (3.6-10.0)
[2018-11-08 07:28] LABS: ALANINE AMINOTRANSFERASE 35 Units/L (12-78); ALBUMIN 3.8 g/dL (3.4-5.0); ALKALINE PHOSPHATASE 80 Units/L (46-116); ASPARTATE AMINO TRANSFERASE 21 Units/L (15-37); BLOOD UREA NITROGEN 21 mg/dL (7-18); CALCIUM 9.2 mg/dL (8.5-10.1); CHLORIDE 102 mmol/L (98-107); DIGOXIN 0.88 ng/mL (0.9-2); SODIUM 142 mmol/L (136-145); TOTAL PROTEIN 6.5 g/dL (6.4-8.2); eGFR NON BLACK RACES > 60 (>60)
[2018-11-08] MEDS: ALDACTONE TAB 25 MG PO SCH ×2 (07:44→08:23)
[2018-11-08] MEDS: ALBUMIN HUMAN 25%- 100 ML 100 ML IV SCH ×2 (07:44→08:22)
[2018-11-08] MEDS: ELIQUIS PO SCH ×5 (07:44→21:22)
[2018-11-08] MEDS: ZESTRIL TAB 10 MG PO SCH ×2 (07:45→08:24)
[2018-11-08] MEDS: PEPCID TAB 20 MG PO SCH ×2 (07:45→08:24)
[2018-11-08] MEDS: PATIENT'S HOME MEDICATION PO SCH ×2 (07:45→08:24)
[2018-11-08] MEDS: LANOXIN PO SCH ×2 (07:45→08:23)
[2018-11-08] MEDS: LOPRESSOR TAB 25 MG PO SCH ×2 (07:45→08:24)
[2018-11-08] MEDS: LASIX IVP SCH ×3 (07:45→21:22)
[2018-11-08] MEDS: DIABETA PO SCH ×2 (08:23→21:35)
[2018-11-08] MEDS ORDERED: LOPRESSOR TAB 50 MG ONE (09:49)
[2018-11-08] MEDS ORDERED: LOPRESSOR INJ 5 MG AMP IVP ONE (09:52)
[2018-11-08] MEDS ORDERED: LOPRESSOR INJ 5 MG AMP ONE (09:55)
[2018-11-08] MEDS ORDERED: TOPROL XL PO ONE (09:55)
[2018-11-08] MEDS ORDERED: TOPROL XL PO SCH (10:00)
[2018-11-08] MEDS: SNACK - Diabetic Appropriate PO SCH (21:00)
[2018-11-09 06:19] LABS: ANTI-NUCLEAR ANTIBODY TEST None Detected (None Detected)
[2018-11-09 06:22] LABS: BASOPHILS # (AUTO) 0.1 X10^3/uL (0.0-0.1); BASOPHILS % (AUTO) 0.9 % (0.2-1.0); EOSINOPHILS # (AUTO) 0.2 x10^3/uL (0.0-0.2); EOSINOPHILS % (AUTO) 1.5 % (0.9-2.9); HEMATOCRIT 33.5 % (36.0-47.0); HEMOGLOBIN 11.1 g/dL (12.0-16.0); LYMPHOCYTES # (AUTO) 2.3 X10^3/uL (1.3-2.9); LYMPHOCYTES % (AUTO) 21.4 % (21.0-51.0); MEAN CORPUSCULAR HEMOGLOBIN 28.4 pg (27.0-34.0); MEAN CORPUSCULAR HGB CONC 33.1 g/dL (33.0-35.0); MEAN CORPUSCULAR VOLUME 85.8 fL (80.0-100.0); MEAN PLATELET VOLUME 8.2 fL (7.4-11.0); MONOCYTES # (AUTO) 0.6 x10^3/uL (0.3-0.8); MONOCYTES % (AUTO) 5.7 % (0.0-13.0); NEUTROPHILS # (AUTO) 7.7 x10^3/uL (2.2-4.8); NEUTROPHILS % (AUTO) 70.5 % (42.0-75.0); PLATELET COUNT 275 X10^3/uL (150.0-450.0); RED BLOOD COUNT 3.91 X10^6/uL (3.5-5.4); RED CELL DISTRIBUTION WIDTH 14.9 % (11.6-16.5)
[2018-11-09 06:35] LABS: ALANINE AMINOTRANSFERASE 32 Units/L (12-78); ALBUMIN 3.6 g/dL (3.4-5.0); ALKALINE PHOSPHATASE 80 Units/L (46-116); ASPARTATE AMINO TRANSFERASE 20 Units/L (15-37); BLOOD UREA NITROGEN 22 mg/dL (7-18); CALCIUM 8.8 mg/dL (8.5-10.1); CARBON DIOXIDE 31.8 mmol/L (21-32); CHLORIDE 103 mmol/L (98-107); CREATININE 0.77 mg/dL (0.55-1.02); DIGOXIN 0.73 ng/mL (0.9-2); SODIUM 142 mmol/L (136-145); TOTAL PROTEIN 6.6 g/dL (6.4-8.2); eGFR NON BLACK RACES > 60 (>60)
[2018-11-09] MEDS ORDERED: TOPROL XL PO ONE (07:31)
[2018-11-09] MEDS: ALDACTONE TAB 25 MG PO SCH (08:37)
[2018-11-09] MEDS: DIABETA PO SCH ×2 (08:37→20:57)
[2018-11-09] MEDS: ZESTRIL TAB 10 MG PO SCH (08:37)
[2018-11-09] MEDS: PEPCID TAB 20 MG PO SCH (08:37)
[2018-11-09] MEDS: LANOXIN PO SCH (08:37)
[2018-11-09] MEDS: LASIX IVP SCH ×2 (08:37→20:57)
[2018-11-09] MEDS: TOPROL XL PO SCH (08:38)
[2018-11-09] MEDS: ALBUMIN HUMAN 25%- 100 ML 100 ML IV SCH (08:39)
[2018-11-09] MEDS: ELIQUIS PO SCH ×2 (08:39→20:57)
[2018-11-09] MEDS: PATIENT'S HOME MEDICATION PO SCH (08:45)
[2018-11-09] MEDS ORDERED: NS 250 ML IV 250 ML IV ONE (09:29)
[2018-11-09] MEDS ORDERED: ASTELIN NASAL SPRAY ENOSTRIL ONE (09:40)
[2018-11-09] MEDS: ASTELIN NASAL SPRAY ENOSTRIL SCH ×3 (09:42→21:00)
[2018-11-09] MEDS: FLONASE NASAL SPRAY ENOSTRIL SCH ×2 (09:42→20:58)
[2018-11-09] MEDS: LEVAQUIN TAB 750 MG PO SCH (09:42)
[2018-11-09] MEDS ORDERED: NEXTERONE IV 150 MG PREMIX* 150 MG/100 ML BAG IV ONE (10:00)
[2018-11-09] MEDS ORDERED: ZOFRAN INJ 4 MG VIAL IVP PRN (10:44)
[2018-11-09] MEDS: SNACK - Diabetic Appropriate PO SCH (20:57)
[2018-11-10 05:19] LABS: BASOPHILS # (AUTO) 0.1 X10^3/uL (0.0-0.1); EOSINOPHILS # (AUTO) 0.2 x10^3/uL (0.0-0.2); EOSINOPHILS % (AUTO) 1.5 % (0.9-2.9); HEMATOCRIT 33.6 % (36.0-47.0); HEMOGLOBIN 10.8 g/dL (12.0-16.0); LYMPHOCYTES # (AUTO) 2.4 X10^3/uL (1.3-2.9); LYMPHOCYTES % (AUTO) 22.8 % (21.0-51.0); MEAN CORPUSCULAR HEMOGLOBIN 27.9 pg (27.0-34.0); MEAN CORPUSCULAR HGB CONC 32.2 g/dL (33.0-35.0); MEAN CORPUSCULAR VOLUME 86.7 fL (80.0-100.0); MEAN PLATELET VOLUME 7.9 fL (7.4-11.0); MONOCYTES # (AUTO) 0.7 x10^3/uL (0.3-0.8); MONOCYTES % (AUTO) 7.2 % (0.0-13.0); NEUTROPHILS # (AUTO) 7.1 x10^3/uL (2.2-4.8); NEUTROPHILS % (AUTO) 67.5 % (42.0-75.0); PLATELET COUNT 253 X10^3/uL (150.0-450.0); RED BLOOD COUNT 3.88 X10^6/uL (3.5-5.4); RED CELL DISTRIBUTION WIDTH 15.4 % (11.6-16.5); WHITE BLOOD COUNT 10.4 X10^3/uL (3.6-10.0)
[2018-11-10 05:35] LABS: ALANINE AMINOTRANSFERASE 35 Units/L (12-78); ALBUMIN 3.7 g/dL (3.4-5.0); ALKALINE PHOSPHATASE 79 Units/L (46-116); ASPARTATE AMINO TRANSFERASE 20 Units/L (15-37); BLOOD UREA NITROGEN 21 mg/dL (7-18); CARBON DIOXIDE 31.9 mmol/L (21-32); CHLORIDE 102 mmol/L (98-107); SODIUM 139 mmol/L (136-145); TOTAL PROTEIN 6.7 g/dL (6.4-8.2); eGFR NON BLACK RACES > 60 (>60)
[2018-11-10] MEDS: ASTELIN NASAL SPRAY ENOSTRIL SCH (06:01)
[2018-11-10] MEDS ORDERED: TOPROL XL PO ONE (08:19)
[2018-11-10] MEDS: DIABETA PO SCH (08:56)
[2018-11-10] MEDS: ZESTRIL TAB 10 MG PO SCH (08:56)
[2018-11-10] MEDS: PEPCID TAB 20 MG PO SCH (08:56)
[2018-11-10] MEDS: ALBUMIN HUMAN 25%- 100 ML 100 ML IV SCH (08:56)
[2018-11-10] MEDS: TOPROL XL PO SCH (08:56)
[2018-11-10] MEDS: ALDACTONE TAB 25 MG PO SCH (08:56)
[2018-11-10] MEDS: ELIQUIS PO SCH (08:56)
[2018-11-10] MEDS: LEVAQUIN TAB 750 MG PO SCH (09:00)
[2018-11-10] MEDS: PATIENT'S HOME MEDICATION PO SCH (09:01)
[2018-11-10] MEDS: FLONASE NASAL SPRAY ENOSTRIL SCH (09:01)
[2018-11-10 11:09] VITALS: BP 137/77
[2018-11-10] MEDS: LASIX IVP SCH (11:43)
== END 2018-11-10 13:22 | disposition home or self-care (01) | DRG 309 ==
LOC: ER 12:59 → ICU 17:59
PROVIDERS: ADMIT Internal Medicine; ATTEND Internal Medicine
DX: J30.89 Other allergic rhinitis; R10.30 Lower abdominal pain, unspecified; J32.8 Other chronic sinusitis; R11.2 Nausea with vomiting, unspecified; E11.65 Type 2 diabetes mellitus with hyperglycemia; J90 Pleural effusion, not elsewhere classified; Z23 Encounter for immunization; I50.9 Heart failure, unspecified; I11.0 Hypertensive heart disease with heart failure; K57.30 Diverticulosis of large intestine without perforation or abscess without bleeding; R06.02 Shortness of breath; I48.91 Unspecified atrial fibrillation; R18.8 Other ascites; R74.8 Abnormal levels of other serum enzymes
CPT/HCPCS: 36415; 71010; 71045; 74176; 74177; 76705; 80053; 80061; 80074; 80162; 80307; 81001; 82103; 82140; 82150; 82390; 82525; 82550; 82553; 82728; 83516; 83540; 83690; 83735; 83880; 84132; 84439; 84443; 84466; 84484; 85025; 85378; 85610; 85730; 86038; 86256; 86308; 90674; 90686; 93005; 93041; 93306; 96365; 96367; 96374; 96375; 99283; 99285; A4216; A4222; P9047; 90670; G0434; J0153; J0282; J1160; J1650; J1940; J2405; J3490; J7030; J7050; J8499